=== PATIENT | male | born 1945 | race Caucasian/White ===

== ENCOUNTER → 2017-10-03 08:32 | Outpatient (CLI) | payer MEDICARE, OTHER, SELFPAY ==
[2017-10-03 10:19] LABS: Alanine Aminotransferase 24 U/L (12-78); Albumin Level 3.6 gm/dL (3.4-5.0); Albumin/Globulin Ratio 1.2 (1.1-1.8); Alkaline Phosphatase 82 U/L (46-116); Anion Gap 8.2 mEq/L (5-15); Aspartate Amino Transferase 13 U/L (15-37); Bilirubin,Total 0.5 mg/dL (0.2-1.0); Blood Urea Nitrogen 20 mg/dL (7-18); Calcium 8.7 mg/dL (8.5-10.1); Carbon Dioxide 32 mmol/L (21.0-32.0); Chloride 108 mmol/L (98-107); Chol/HDL Ratio 4.1 (1-3.5); Cholesterol 205 mg/dL (140-200); Creatinine,Serum 0.85 mg/dL (0.70-1.30); Estimated Glomerular Filt Rate 89 ml/min (>60); GFR (African American) 107 ML/MIN (>60); Glucose 108 mg/dL (74-106); HDL Cholesterol 50 mg/dL (27-67); LDL Cholesterol 139 mg/dL (0-130); Potassium 4.2 mmoL/L (3.5-5.1); Sodium 144 mmol/L (136-145); Total Protein,Serum 6.6 gm/dL (6.4-8.2); Triglycerides 81 mg/dL (30-200); VLDL Cholesterol 16 mg/dL (0-40)
== END ==
PROVIDERS: PCP Internal Medicine Adolescent Medicine; Visit Provider Internal Medicine Adolescent Medicine
DX: Z83.49 Family history of other endocrine, nutritional and metabolic diseases (principal); Z79.899 Other long term (current) drug therapy
CPT/HCPCS: 36415; 80053; 80061

== ENCOUNTER → 2018-10-10 10:32 | Outpatient (CLI) | payer MEDICARE, BC, SELFPAY ==
--- NOTE | 2018-10-10 10:55 | XR_ITS ---
XR ribs RT 2V HISTORY: ITS.REASON: MID BACK PAIN RT SIDE ORDERING PHYSICIAN: Cedric Farley MD PATIENT AGE: 72 years Comparison: None FINDINGS: Multiple views of the right ribs were obtained. No fracture or dislocation. No lytic or blastic change. IMPRESSION: Negative RIBS. If pain persists, consider follow-up exam in 7-[address] with 3-D reformats.
--- NOTE | 2018-10-10 10:55 | XR_ITS ---
XR chest 2V HISTORY: ITS.REASON: MID BACK PAIN RT SIDE ORDERING PHYSICIAN: Cedric Farley MD PATIENT AGE: 72 years COMPARISON: None FINDINGS: The cardiomediastinal silhouette and pulmonary vascularity are within normal limits. The lungs are clear without infiltrates, suspicious nodules, or pleural effusions. No acute bony abnormalities. IMPRESSION: Negative chest, no acute finding
== END ==
PROVIDERS: PCP Internal Medicine Adolescent Medicine; Visit Provider Internal Medicine Adolescent Medicine
DX: M54.9 Dorsalgia, unspecified (principal)
CPT/HCPCS: 71046; 71100

== ENCOUNTER → 2020-06-04 09:48 | Outpatient (CLI) | payer MEDICARE, BC, SELFPAY ==
--- NOTE | 2020-06-04 10:03 | XR_ITS ---
PROCEDURE: XR SHOULDER LT MIN 2V CLINICAL INDICATION: ROTATOR CUFF SYNDROME OF LEFT SHOULDER COMPARISON: No exams were available for comparison FINDINGS: The clavicle is intact, there is minor degenerate change of the AC joint. The humeral head rides slightly high in the glenoid usually an indication of some degree of rotator cuff pathology. However there is no significant subacromial stenosis. There are no soft tissue calcifications. IMPRESSION: No acute findings. Dictated by: Dr. Edwin Gamboa MD 06/04/2020 11:23 Dr. Edwin Gamboa MD in [place] 06/04/2020 11:23
--- NOTE | 2020-06-04 10:03 | XR_ITS ---
PROCEDURE: XR THORACIC SPINE 3V CLINICAL INDICATION: MECHANICAL LOW BACK PAIN COMPARISON: No exams were available for comparison FINDINGS: There is minor tilting of the upper thoracic spine to the left likely due to positioning for the radiograph. All thoracic vertebrae appear intact. There minor multilevel degenerate changes T8 through T12. There is no paraspinal mass. IMPRESSION: Minor degenerate changes lower thoracic spine Dictated by: Dr. Edwin Gamboa MD 06/04/2020 11:28 Dr. Edwin Gamboa MD in [place] 06/04/2020 11:28
--- NOTE | 2020-06-04 10:04 | XR_ITS ---
PROCEDURE: XR LUMBAR SPINE MIN 4V CLINICAL INDICATION: MECHANICAL LOW BACK PAIN COMPARISON: No exams were available for comparison FINDINGS: There is normal curvature and alignment. All lumbar vertebrae appear intact and disc spaces are well maintained throughout. There is no pars defect. The SI joints are normal. There is minimal arteriosclerotic calcification of the abdominal aorta but there is no aneurysm. There is minor anterior osteophytic spurring at the L2-3 and L3-4 levels. IMPRESSION: Minor degenerate changes as noted otherwise unremarkable lumbar spine Dictated by: Dr. Edwin Gamboa MD 06/04/2020 11:21 Dr. Edwin Gamboa MD in [place] 06/04/2020 11:21
== END ==
PROVIDERS: PCP Internal Medicine Adolescent Medicine; Visit Provider Internal Medicine Adolescent Medicine
DX: M54.5 Low back pain (principal); M75.102 Unspecified rotator cuff tear or rupture of left shoulder, not specified as traumatic
CPT/HCPCS: 72072; 72110; 73030

== ENCOUNTER → 2020-09-21 12:17 | Outpatient (CLI) | payer MEDICARE, BC, SELFPAY ==
[2020-09-21 14:22] LABS: Chloride 101 mmol/L (98-107)
[2020-09-21 14:23] LABS: Potassium 4.5 mmoL/L (3.5-5.1); Sodium 142 mmol/L (136-145)
[2020-09-21 14:25] LABS: Alanine Aminotransferase 16 U/L (12-78); Alkaline Phosphatase 80 U/L (38-126); Anion Gap 10.5 mEq/L (5-15); Aspartate Amino Transferase 22 U/L (17-59); Bilirubin,Total 0.5 mg/dl (0.2-1.3); Blood Urea Nitrogen 18 mg/dl (9-20); Carbon Dioxide 35 mmol/L (22.0-30.0); Estimated Glomerular Filt Rate 82 ml/min (>60); GFR (African American) 100 ML/MIN (>60)
[2020-09-21 14:26] LABS: Albumin Level 4.5 g/dl (3.5-5.0); Albumin/Globulin Ratio 1.6 (1.1-1.8); Chol/HDL Ratio 4.4 (1-3.5); Cholesterol 214 mg/dl (140-200); Globulin 2.9 g/dL (1.3-3.2); Glucose 112 mg/dl (74-100); HDL Cholesterol 49 mg/dl (40-60); Total Protein,Serum 7.4 g/dl (6.3-8.2); Triglycerides 151 mg/dl (30-150); VLDL Cholesterol 30 mg/dL (0-40)
[2020-09-21 14:38] LABS: Direct LDL Cholesterol 138.09 mg/dL (100-129)
== END ==
PROVIDERS: Visit Provider Internal Medicine Adolescent Medicine
DX: E78.00 Pure hypercholesterolemia, unspecified (principal)
CPT/HCPCS: 36415; 80053; 80061

== ENCOUNTER 2021-09-02 10:31 | Emergency (ER) | payer MEDICARE, BC, SELFPAY ==
[2021-09-02 10:32] VITALS: BMI 26.2
--- NOTE | 2021-09-02 11:13 | HMH.EDUTC ---
[facility] [place] Clinical Impression: UTI (urinary tract infection) Qualifiers: Urinary tract infection type: site unspecified Hematuria presence: with hematuria Qualified Code(s): N39.0 - Urinary tract infection, site not specified; R31.9 - Hematuria, unspecified Disposition: Home, Self-Care Condition on Discharge: Good Instructions: DI for Urinary Tract Infection (UTI) Additional Instructions: Drink plenty of fluids. Take tylenol or ibuprofen for pain or fever. Take the medications as directed. Follow up with your regular doctor. GO TO THE ER FOR ANY WORSENING SYMPTOMS Follow up with your primary care physician to make sure this infection gets completely better. Prescriptions: Ciprofloxacin HCl [Cipro 500mg Tab] 500 mg PO BID 14 Days #28 tab Transmission Status: Pending to [id number] Referrals: Cedric Farley MD [Primary Care Provider] - Time of Disposition: 12:07 Medical Decision Making - Medical Records Medical records reviewed: No: I reviewed the patient's medical records. - Jc Inquiry Pt receiving controlled substance: No Vital Signs: 09/02/21 11:21 Temperature 98 F Temperature Source Oral Pulse Rate [Left] 72 Respiratory Rate 18 Blood Pressure [Right Arm] 113/90 Blood Pressure Mean [Right Arm] 97 02 Sat by Pulse Oximetry 95 - Lab Data Lab results reviewed: Yes: I reviewed the patient's lab results. Lab Results 09/02/21 11:25: Urine Color Red, Urine Appearance Turbid, Urine pH 5.5, Ur Specific [place] > 1.030 H, Urine Protein 4+, Urine Glucose (UA) 2+, Urine Ketones Trace, Urine Blood 4+, Urine Nitrate Positive A, Urine Bilirubin 1+ A, Urine Urobilinogen 1, Ur Leukocyte Esterase Negative Orders (Tests/Meds): ED MEDICATIONS Discontinued Medications Generic Name Dose Route Start Last Admin Trade Name Freq PRN Reason Stop Dose Admin Ceftriaxone Sodium 1 gm 09/02/21 11:43 09/02/21 11:48 Ceftriaxone 1gm Vial IM 09/02/21 11:44 1 gm ONCE ONE Administration Lidocaine HCl 0 ml 09/02/21 11:43 09/02/21 11:48 Lidocaine 1% 5ml Pf Vial IM 09/02/21 11:44 2 ml ONCE ONE Administration ORDERS Category Date Time Status Urine Culture Stat Micro 09/02/21 11:25 Ordered [facility] [place] HPI - General Stated complaint: can't urinate Time Seen by Provider: 09/02/21 11:13 Mode of Arrival: Ambulatory Source of Information: Patient Limitations: No Limitations Description of Symptoms (Recalled from Triage Doc. by RN): pt c/o freq urination starting yesterday states going every 10-15 mins. denies any burning with urination, nausea, fever or chills - History of Present Illness Provider Complaint: He states that since yesterday he has had urinary frequency and burning with urination. He denies any fever or chills. He always has low back pain, so he cannot tell by this. - Related Data Home Medications Medication Instructions Recorded Confirmed Fexofenadine/Pseudoephedrine 1 each PO DAILY 02/25/18 02/25/18 [Charla-D 12 Hour Tablet] Previous Rx's Medication Instructions Recorded Ciprofloxacin HCl [Cipro 500mg 500 mg PO BID 14 Days #28 tab 09/02/21 Tab] Allergies Allergy/AdvReac Type Severity Reaction Status Date / Time No Known Allergies Allergy Verified 02/25/18 11:07 [facility] History - Hepatitis A Screen Attestation statement:: This patient has been screened for Hepatitis A risk factors. I have reviewed the patient's past medical history: Yes Medical History: Denies:: Diabetes Mellitus Type 1, Diabetes Mellitus Type 2, Internal Pacemaker, Lung Disease, Seizures Other Medical History: Reports: Sinus Problems Other Surgeries: No: Pacemaker Amputation: No Fractures: No - Social History Smoking Status: Current some day smoker Tobacco Type: pipe Alcohol Intake: never Substance Use Type: denies use Family Hx:: No significant family history ROS Obtained: Yes All systems reviewed & no additional compla
[2021-09-02 11:21] VITALS: BP 113/90; PULSE 72; RESP 18; TEMP 36.6; O2SAT 95; BMI 24.8
[2021-09-02 11:31] LABS: Apearance,Urine Turbid (Clear); Bilirubin,Urine 1+ (Negative); Blood, Urine 4+ (Negative); Color,Urine Red (Yellow); Glucose,Urine (UA) 2+ (Negative); Ketones,Urine TRACE (Negative); PH,Urine 5.5 (5.0-8.5); Protein,Urine 4+ (Negative); Specific Gravity, Urine > 1.030 (1.005-1.030)
[2021-09-02 11:32] LABS: UTC Leukocyte Esterase,Urine Negative (Negative); UTC Nitrate,Urine Positive (Negative); Urobilinogen,Urine 1 EU/dl (0.2)
[2021-09-02 12:11] VITALS: BP 113/90; PULSE 72; RESP 18; TEMP 36.6
== END 2021-09-02 12:13 | disposition home or self-care (01) ==
PROVIDERS: Emergency Provider Nurse Practitioner Family; PCP Internal Medicine Adolescent Medicine
DX: N30.01 Acute cystitis with hematuria (principal)
CPT/HCPCS: 81003; 87086; 90471; 99202; G0463; J0696

== ENCOUNTER 2021-10-22 17:35 | Emergency (ER) | payer MEDICARE, BC, SELFPAY ==
[2021-10-22 17:40] VITALS: BP 191/91; PULSE 74; RESP 18; TEMP 36.7; O2SAT 97; BMI 26.6
[2021-10-22 17:54] LABS: Apearance,Urine Clear (Clear); Color,Urine Yellow (Yellow); Glucose,Urine (UA) Negative (Negative)
[2021-10-22 17:55] LABS: Bilirubin,Urine Negative (Negative); Blood, Urine 3+ (Negative); Ketones,Urine Negative (Negative); Protein,Urine 3+ (Negative); UTC Leukocyte Esterase,Urine Negative (Negative); UTC Nitrate,Urine Negative (Negative); Urobilinogen,Urine 0.2 EU/dl (0.2)
--- NOTE | 2021-10-22 17:58 | HMH.EDUTC ---
[facility] [place] Clinical Impression: UTI (urinary tract infection) Qualifiers: Urinary tract infection type: site unspecified Hematuria presence: with hematuria Qualified Code(s): N39.0 - Urinary tract infection, site not specified Disposition: Home, Self-Care Condition on Discharge: Good Instructions: Trimethoprim/Sulfamethoxazole (Alternative Therapy), Urinary Tract Infection, DI for Urinary Tract Infection (UTI), Phenazopyridine Additional Instructions: *Increase fluids. Water not Soda or Tea *Start antibiotic immediately and be sure to take as ordered for the FULL length of time although you should start to see improvement over the next 48 hours *Pyridium as needed Remember this medication will turn your urine [place]. This is normal but it will stain what ever it gets on *You should not use Pyridium for more than 48 hours. If so , follow up with your primary physician to review urine culture and ensure that antibiotic is adequate for infection *Be SURE to follow up anytime for new or worsening symptoms with your family doctor. AND in 48 hours for urine culture results with your family doctor, if you do not have a doctor then you may call back to the [facility] for urine culture results and further treatment. We do recommend that you choose and establish care with a Primary Care Physician. AND follow up with them in 10-14 days to repeat UA to ensure infection is resolved and blood no longer present *Be sure to let your PCP know that we sent urine cultures from the [facility] so they can follow up to ensure that you area the on the correct antibiotic Call your doctor office and make appointment for 48 hours (2 days from today) to follow up and get the results of your urine culture and further treatment Go straight to ER if any fever, confusion or worsening of symptoms Follow up with your Family Doctor or Urology for further treatment and evaluation Return if needed Stop the AZO and take Pyridium as prescribed to help with burning with urination Prescriptions: Sulfamethoxazole/Trimethoprim [Bactrim DS tablet] 1 each PO BID 7 Days #14 tab Transmission Status: Received by [facility] #[id number] Phenazopyridine HCl [Pyridium 200mg Tablet] 200 pow PO TID #6 tab Transmission Status: Received by [facility] #[id number] Referrals: Cedric Farley MD [Primary Care Provider] - As needed Mike Aguilera MD [Staff Physician] - As needed Time of Disposition: 18:17 Medical Decision Making - Jc Inquiry Pt receiving controlled substance: No Jc was queried for this patient: No Vital Signs: 10/22/21 17:40 Temperature 98.0 F Temperature Source Oral Pulse Rate [Left Brachial] 74 Respiratory Rate 18 Blood Pressure [Left Arm] 191/91 H Blood Pressure Mean [Left Arm] 124 Blood Pressure Source [Left Arm] Automatic Cuff Blood Pressure Position [Left Arm] Sitting 02 Sat by Pulse Oximetry 97 Oxygen Delivery Method Room Air - Lab Data Lab results reviewed: Yes: I reviewed the patient's lab results. Lab Results 10/22/21 17:38: Urine Color Yellow, Urine Appearance Clear, Urine pH 6.0, Ur Specific [place] 1.030, Urine Protein 3+, Urine Glucose (UA) Negative, Urine Ketones Negative, Urine Blood 3+, Urine Nitrate Negative, Urine Bilirubin Negative, Urine Urobilinogen 0.2, Ur Leukocyte Esterase Negative Orders (Tests/Meds): ED MEDICATIONS Discontinued Medications Generic Name Dose Route Start Last Admin Trade Name Freq PRN Reason Stop Dose Admin Ceftriaxone Sodium 1 gm 10/22/21 18:11 Ceftriaxone 1gm Vial IM 10/22/21 18:12 ONCE ONE Lidocaine HCl 0 ml 10/22/21 18:11 Lidocaine 1% 5ml Pf Vial IM 10/22/21 18:12 ONCE ONE Medical Decision Narrative: Patient blood pressure was elevated on triage however rechecked and now 137/82 Patient states he is agitated due to using the bathroom so much, Recommended patient follow up with PCP for check up . Patient denies prostate issues and denies history of kidney s
[2021-10-22 18:30] VITALS: BP 128/74; PULSE 74; RESP 18; TEMP 36.7; O2SAT 97
== END 2021-10-22 18:34 | disposition home or self-care (01) ==
PROVIDERS: Emergency Provider Nurse Practitioner; PCP Internal Medicine Adolescent Medicine
DX: N30.00 Acute cystitis without hematuria (principal); F17.210 Nicotine dependence, cigarettes, uncomplicated
CPT/HCPCS: G0463; 81003; 96372; 99202; 99212; 99213; J0696

== ENCOUNTER → 2021-10-30 07:20 | Outpatient (CLI) | payer MEDICARE, SELFPAY ==
--- NOTE | 2021-10-30 07:25 | CT_ITS ---
FINAL REPORT CLINICAL HISTORY: RECURRENT UTI FINDINGS: Axial CT images of the abdomen and pelvis were obtained without intravenous contrast. Coronal reformatted images were also obtained.This study was performed with techniques to keep radiation doses as low as reasonably achievable (ALARA). Individualized dose reduction techniques using automated exposure control or adjustment of mA and/or kV according to the patient's size were employed. Abdomen: There is mild bibasilar atelectasis. There is no evidence of renal stone or hydronephrosis. There is a small gallstone in the gallbladder. The liver, spleen and pancreas have an unremarkable, unenhanced appearance. No mass or adenopathy is seen. There are moderate vascular calcifications. Pelvis: The appendix is normal. There is no evidence of ureteral dilation or ureteral stone. There is urinary bladder wall thickening which is likely inflammatory. There are numerous bladder stones measuring up to 10 mm. The prostate is significantly enlarged measuring 7 cm transverse. There is a small left inguinal hernia containing fat. IMPRESSION: No renal or ureteral stone, or hydronephrosis. Urinary bladder wall thickening, likely inflammatory. Numerous bladder stones measuring up to 10 mm. Significantly enlarged prostate. Reviewed, Interpreted and Dictated by Bakari Connolly III, MD Transcribed by Neyda Gauthier Authenticated by Bakari Connolly III, MD on 10/30/2021 10:18:05 AM [facility]
== END ==
PROVIDERS: PCP Internal Medicine Adolescent Medicine; Visit Provider Internal Medicine Adolescent Medicine
DX: N39.0 Urinary tract infection, site not specified (principal)
CPT/HCPCS: 74176

== ENCOUNTER → 2021-12-08 10:52 | Outpatient (CLI) | payer MEDICARE, SELFPAY ==
[2021-12-08 11:01] LABS: MANUAL DIFFERENTIAL MANUAL DIFFERENTIAL (MANUAL DIFF)
[2021-12-08 11:41] LABS: Anion Gap 9.9 mEq/L (5-15); Blood Urea Nitrogen 21 mg/dl (9-20); Calcium 8.6 mg/dl (8.4-10.2); Carbon Dioxide 29 mmol/L (22.0-30.0); Chloride 106 mmol/L (98-107); Estimated Glomerular Filt Rate 72 ml/min (>60); GFR (African American) 88 ML/MIN (>60); Glucose 128 mg/dl (74-100); Potassium 3.9 mmoL/L (3.5-5.1); Sodium 141 mmol/L (136-145)
[2021-12-08 14:27] LABS: Basophils % 0.3 % (0.1-2.0); Eosinophils # 0.2 K/mm3 (0.0-0.4); Eosinophils % 4.1 % (0.1-12.0); Hematocrit 45.6 % (42.0-52.0); Hemoglobin 14.2 g/dL (14.1-18.0); Lymphocytes # 1.2 K/mm3 (0.7-4.5); Mean Corpuscular HGB Conc 31.1 g/dL (31.8-35.4); Mean Corpuscular Volume 89.9 fl (80-94); Mean Platelet Volume 8.9 fl (7.4-10.4); Monocytes # 0.4 K/mm3 (0.1-1.0); Monocytes % 7.4 % (1.7-9.3); Neutrophils # 3.4 K/mm3 (1.8-7.8); Neutrophils % 65.2 % (37.0-80.0); Platelet Count 169 K/mm3 (142-424); Red Blood Count 5.07 M/mm3 (4.60-6.20); Red Cell Distribution Width 14.6 % (11.5-17.5); White Blood Count 5.3 K/mm3 (4.8-10.8)
[2021-12-08 14:53] LABS: Lymphocytes % 28 % (10-50); Monocytes % 3 % (2-9); Neutrophils % 69 % (42-76); Platelet Estimate Normal; RBC Morphology Normal; Total Cells Counted 100
== END ==
PROVIDERS: Visit Provider Urology
DX: N39.0 Urinary tract infection, site not specified (principal); N40.1 Benign prostatic hyperplasia with lower urinary tract symptoms; N21.0 Calculus in bladder; Z01.812 Encounter for preprocedural laboratory examination; Z11.52 Encounter for screening for COVID-19
CPT/HCPCS: 36415; 80048; 85007; 85014; 85018; 85048; 85049; C9803; U0003; U0005

== ENCOUNTER 2021-12-11 14:46 | Observation (INO) | payer MEDICARE, SELFPAY ==
[2021-12-07 10:22] VITALS: BMI 27.3
[2021-12-11] VITALS (26 sets, daily range): BP systolic 132–185; BP diastolic 60–94; PULSE 52–74; RESP 16–18; TEMP 36.2–43; O2SAT 92–98; BMI 27.3
--- NOTE | 2021-12-11 12:08 | HMH.ANESCL ---
[facility] Anesthesia Checklist - Patient Identification Patient Identification: Arm Band - Structural Data Admitted From: Home Planned Operative Procedure/s: Cystoscopy with Bladder Stone Removal Consent for Planned Operative Procedure(s) Verified: Yes Verified Documents: Surgical Consent, History and Physical - NPO Status Verified Time NPO: 00:00 - Additional verifications Anesthesia Reactions: No Hx Blood Transfusions: No Blood Transfusion Reaction: No - Airway Assessment C-Spine Mobility Assessed: Yes (mp2) TMJ Mobility Assessed: No Dentition: Poor Dentition - Neurological Assessment Level of Consciousness: Awake, Alert - Anesthesia Plan Anesthesia Risk discussed: Yes Anesthesia Plan: Verified ASA Class: II Anesthesia Type: General [facility] History I have reviewed the patient's past medical history: Yes Medical History: Reports:: Hypertension Denies:: Cancer, Diabetes Mellitus Type 1, Diabetes Mellitus Type 2, Internal Pacemaker, Lung Disease, MRSA, Seizures *Have you ever received a pneumonia vaccine?: Yes *Have you received a flu vaccine this season?: Yes Other Medical History: Reports: Sinus Problems. Denies: Blood Transfusion Reaction Anesthesia experience/problems:: nac Other Surgeries: Yes: Colonoscopy, Other. No: Pacemaker Amputation: No Fractures: No - *Social History Last grade of school completed: Some college Smoking Status: Current some day smoker Tobacco Type: pipe Alcohol Intake: never Substance Use Type: denies use *Occupational Status:: retired Housing: house Household Members: spouse *Travel in the last 8 weeks: None Family Hx:: No significant family history
--- NOTE | 2021-12-11 13:42 | P.PN_ITS ---
[facility] Anesthesia Record Part I Intake, IV Amount: 1,100 Estimated blood loss (mL): 0 Urine output (mL): 0 Blood Pressure: 167/91 SaO2: 94 Pulse Rate: 54 Respiratory Rate: 16 Temperature: 98 F Patient is:: Drowsy, Stable Stable to PACU at:: 13:40
--- NOTE | 2021-12-11 14:14 | P.PN_ITS ---
[facility] Anesthesia Record Part II Discharge Time: 14:00 Destination: Surgical Day Care (OP Surgery) PACU nurse assessment reviewed?: Yes Patient Condition:: Good Anesthesia Complications:: None Swallowing reflex intact?: Yes Cyanosis?: No Blood Pressure: 175/69 Pulse Rate: 60 Temperature: 97.9 F Mental Status: Alert & Oriented Pain level:: 0 Nausea and/or vomitting:: None Intake, IV Amount: 0
--- NOTE | 2021-12-11 14:30 | SUR.PHASEII ---
dr ferguson at bedside to irrigate catheter
--- NOTE | 2021-12-11 14:53 | HMH.PHAINT ---
MEDICATION RECONCILIATION COMPLETED ON PATIENT USING EXTERNAL FILL HISTORY FROM PHARMACY. -BRE FORREST, MYRNAD
--- NOTE | 2021-12-11 15:17 | SUR.PHASEII ---
waiting on orders from dr ferguson, report given to dale tubbs
--- NOTE | 2021-12-11 15:26 | HMH.OPNOTE ---
Date of procedure: 12/11/21 Pre-op Diagnosis:: Multiple bladder stones Post-op Diagnosis:: Bladder stones x7 Procedure performed:: Cystolitholopaxy with laser lithotripsy and removal of multiple bladder stones Surgeon:: Mike Aguilera MD PLASTIC ROLLER:: Junaid Khan Anesthesia: LMA Estimated blood loss (mL): 10 Clinical Note:: 76-year-old white male with some lower urinary tract symptoms and BPH has multiple bladder stones. He presents for urologic management of the bladder stones today. Operative findings:: Patient with a very high bladder neck but no significant prostatic hyperplasia. The bladder contains 7 bladder stones ranging from 9mm to 12 mm. Operative note:: Patient taken to the operating room after informed consent was obtained. Placed on the operating table in the supine position and general anesthesia administered. Preoperative antibiotics and sequential compression devices placed. He was then placed into the dorsal lithotomy position and prepped and draped in the standard surgical fashion. The 22 Prydeinig cystoscope passed into the urethra and up to the prostatic urethra which showed no significant hyperplasia but the bladder neck was quite high. The bladder was entered and there were noted to be 7 smooth round stones ranging from 9 mm to 12 mm in size. The cystoscope then removed and our 26 Prydeinig resectoscope sheath with obturator passed into the urethra but there was some narrowing. The urethra was dilated to 30 Prydeinig with Moses sounds and the 26 Prydeinig resectoscope sheath with obturator repassed and now passed into the bladder without difficulty. The 24 Prydeinig Loop was attached to the resectoscope and the resectoscope passed through the sheath and 6 of the stones were able to be grasped and removed with the loop. It was noted that there was some trauma with removing the stones and repassing the scope and some bleeding noted of the pendulous urethra and the prostatic urethra and bladder neck. The stone was larger and could not be grasped with the loop so the resectoscope was removed and our cystoscope was replaced and our 242 nm laser fiber passed through the scope and the stone broken up into several small fragments. Some of these were basketed out with a 3.0 basket and our cystoscope was then removed and we replaced the resectoscope and couple of other small fragments were removed. We then used the loop to cauterize some bleeding tissue at the bladder neck the prostatic urethra and pendulous urethra. Scope removed and a 20 Prydeinig catheter passed into 10 cc placed into the balloon. Patient transported to recovery room in stable condition. Condition: stable Disposition: PACU Specimens:: Bladder stones Complications:: None
--- NOTE | 2021-12-11 15:33 | HMH.HP ---
*Admission Date: 12/11/21 *Chief complaint: Penile pain and hematuria *History of present illness: 76-year-old white male with multiple bladder stones underwent cystolitholopaxy of the stones today in the operating room. Postoperatively he was having some penile discomfort as well as some oozing of blood from around his Wagner catheter and through the Wagner. Patient had 4 mg of morphine with some persistent discomfort and we discussed admitting him to the hospital for observation overnight. [facility] History Medical History: Reports:: Hypertension Denies:: Cancer, Diabetes Mellitus Type 1, Diabetes Mellitus Type 2, Internal Pacemaker, Lung Disease, MRSA, Seizures *Have you ever received a pneumonia vaccine?: Yes *Have you received a flu vaccine this season?: Yes Other Medical History: Reports: Sinus Problems. Denies: Blood Transfusion Reaction Anesthesia experience/problems:: nac Other Surgeries: Yes: No Previous Surgery, Colonoscopy, Other. No: Pacemaker Amputation: No Fractures: No - *Social History Last grade of school completed: Some college Smoking Status: Current some day smoker Tobacco Type: pipe Alcohol Intake: never Substance Use Type: denies use *Occupational Status:: retired Housing: house Household Members: spouse *Travel in the last 8 weeks: None Family Hx:: No significant family history Review of Systems - Review of Systems Review of systems:: pertinent systems reviewed and negative unless documented below Meds Home Medications Medication Instructions Recorded Confirmed Type Fexofenadine HCl [Charla Allergy] 60 mg PO DAILY 12/07/21 12/11/21 History Fluticasone Propionate [Flonase 1 spray NS DAILY 12/11/21 12/11/21 History 50mcg nasal spray 16gm] Tamsulosin HCl [Flomax 0.4mg 0.4 mg PO HS 12/11/21 12/11/21 History capsule] Allergies Allergy/AdvReac Type Severity Reaction Status Date / Time No Known Allergies Allergy Verified 12/11/21 09:43 Exam Vital signs and Labs for Last 24 Hours: Temp Pulse Resp BP Pulse Ox 97.9 F 59 L 18 163/82 H 97 12/11/21 14:14 12/11/21 15:01 12/11/21 15:01 12/11/21 15:01 12/11/21 15:01 I & O for Last 24 hours: Intake & Output 04/08/12/09/21 12/10/21 12/11/21 23:59 23:59 23:59 23:59 Intake Total 1100 / 1100 Balance 1100 / 1100 - Constitutional no acute distress - *Routine HEENT Exam Head: Present: normocephalic Eye: Present: EOMI, PERRL ENT: Present: mucous membranes moist - *Routine Neck Exam Present: supple. Absent: lymphadenopathy - *Routine Respiratory Exam Absent: accessory muscle use - *Routine Cardiovascular Exam Absent: JVD - *Routine Abdominal Exam Present: soft. Absent: tenderness - *Routine Rectal Exam Rectal:: deferred - *Routine Genitalia Exam Genitalia:: normal male - *Routine Extremities Exam Absent: cyanosis, clubbing, edema - *Routine Skin Exam Present: warm. Absent: rash - *Routine Neurological Exam Present: alert, oriented X3 Assessment and Plan (1) Bladder calculi Status: Acute Category: Medical Code(s): N21.0 - Calculus in bladder Patient underwent cystolitholopaxy today in the operating room. In recovery room he was having some mild persistent penile pain despite pain medication as well as some hematuria in his Wagner catheter. The plan was to discharge him home with his Wagner catheter but due to the pain and the blood in the urine I feel it would be prudent to keep him overnight for observation and pain control.
[2021-12-11 18:10] LABS: Coronavirus 19, PCR Not Detected (NotDetected); Influenza A, PCR Not Detected (NotDetected); Influenza B, PCR Not Detected (NotDetected)
[2021-12-12] VITALS: BP 134/47; PULSE 66; RESP 15; TEMP 37.1; O2SAT 92
[2021-12-12 04:00] VITALS: BP 141/69; PULSE 71; RESP 17; TEMP 36.9; O2SAT 96
[2021-12-12 05:00] VITALS: BMI 27.3
--- NOTE | 2021-12-12 06:26 | PC.NURSE ---
Pt has not voiced any complaints to staff t/o shift. Wagner catheter in place draining dark yellow urine. Bleeding noted at cath insertion site. Area has been cleaned and dressed 2x this shift. Call light within reach.
--- NOTE | 2021-12-12 07:14 | HMH.PHAVTE ---
[facility] Pharmacy VTE Monitoring - Patient Demographics Admission date: 12/12/21 Report Date: 12/12/21 Time: 07:14 Allergies/Adverse Reactions: Patient Allergies No Known Allergies Allergy (Verified 12/11/21 09:43) Height: 1.75 m Weight: 83.915 kg Patient Problems: Current Active Problems Bladder calculi (Acute) - VTE Risk Was VTE Risk Assessment Performed: Yes VTE Score: 1 Clinical Trial Participant: No - Prophylaxis VTE Prophylaxis Ordered?: Yes Types of VTE Prophylaxis: IPCS Knee High Location of Applied Device: Bilateral Lower Extremeties
[2021-12-12 08:00] VITALS: BP 136/64; PULSE 65; RESP 18; TEMP 36.9; O2SAT 95
--- NOTE | 2021-12-12 09:44 | HMH.ACPN2 ---
Internal Medicine - PN: Subj *Date: 12/12/21 *Time: 09:44 Interval history: Patient status post cystolithopaxy of several bladder stones yesterday. Postoperatively he had some penile pain as well as some hematuria and a Wagner catheter had been placed in the operating room after his procedure. Plan was to discharge home but he was having a lot of penile discomfort and hematuria so was kept overnight for observation. He feels much better this morning in the urine in the Wagner bag is clear. Exam Vital signs and Labs for Last 24 Hours: Temp Pulse Resp BP Pulse Ox 98.4 F 65 18 136/64 95 12/12/21 08:00 12/12/21 08:00 12/12/21 08:00 12/12/21 08:00 12/12/21 08:00 Laboratory Results - last 24 hr 12/11/21 18:03: SARS-CoV-2 (PCR) Not detected, Influenza A Untype (PCR) Not detected, Influenza Type B (PCR) Not detected I & O for Last 24 hours: Intake & Output 12/09/21 12/10/21 12/11/21 12/12/21 23:59 23:59 23:59 23:59 Intake Total 1734 / 1734 200 / 200 Output Total 300 / 850 550 / 550 Balance 1434 / 884 -350 / -350 Weight 83.943 kg 83.915 kg - Constitutional no acute distress - *Routine HEENT Exam Head: Present: normocephalic Eye: Present: EOMI, PERRL ENT: Present: mucous membranes moist - *Routine Neck Exam Present: supple. Absent: lymphadenopathy - *Routine Respiratory Exam Absent: accessory muscle use - *Routine Cardiovascular Exam Absent: JVD - *Routine Abdominal Exam Present: soft, normoactive bowel sounds. Absent: tenderness - *Routine Extremities Exam Absent: cyanosis, clubbing, edema - *Routine Skin Exam Present: warm. Absent: rash - *Routine Neurological Exam Present: alert, oriented X3 Assessment and Plan (1) Bladder calculi Status: Acute Category: Medical Code(s): N21.0 - Calculus in bladder Patient status post removal of several bladder stones yesterday with resultant penile discomfort and hematuria. Wagner catheter was placed in the operating room after the procedure due to the hematuria and the urine in his Wagner bag today is clear. Penile pain is much diminished. We will plan to remove his Wagner catheter and discharged home today. We did discuss that he would likely see a little bit of blood in his urine for 2 to 3 days. We will follow-up in 1 week.
--- NOTE | 2021-12-28 10:28 | HMH.DCSUM ---
General - General Admission date:: 12/11/21 Discharge date: 12/12/21 HPI HPI: 76-year-old white male with multiple bladder stones underwent cystolitholopaxy of the stones today in the operating room. Postoperatively he was having some penile discomfort as well as some oozing of blood from around his Wagner catheter and through the Wagner. Patient had 4 mg of morphine with some persistent discomfort and we discussed admitting him to the hospital for observation overnight. Hospital Course Hospital Course: Patient was admitted to the hospital. Cystolitholopaxy due to some penile pain and hematuria. Wagner catheter was kept in overnight and on the following morning penile pain was improved and hematuria had resolved. Wagner catheter was removed and he was able to void before discharge. Objective Vital signs: Temp Pulse Resp BP Pulse Ox 98.4 F 65 18 136/64 95 12/12/21 08:00 12/12/21 08:00 12/12/21 08:00 12/12/21 08:00 12/12/21 08:00 no acute distress - *Routine HEENT Exam Head: Present: normocephalic Eye: Present: EOMI, PERRL ENT: Present: mucous membranes moist - *Routine Neck Exam Present: supple - *Routine Respiratory Exam Absent: accessory muscle use - *Routine Cardiovascular Exam Absent: JVD - *Routine Abdominal Exam Present: soft. Absent: tenderness - *Routine Extremities Exam Absent: cyanosis, clubbing, edema - *Routine Skin Exam Present: warm. Absent: rash DS: Diagnosis - Discharge Diagnosis (1) Bladder calculi Status: Acute Discharge Plan - Patient Discharge Instructions ACTIVITY: Ambulate as tolerated DIET: regular diet Additional Instructions: push fluids Patient Instructions: DI for Cystoscopy - Follow up Plan Follow up with: Mike Aguilera MD [Staff Physician] - 12/19/21 11:15 am Disposition: Home, Self-Care Condition at discharge:: Stable Home Medications: Home Medications Medication Instructions Recorded Confirmed Type No Known Home Medications 12/27/21 12/27/21 History Prescriptions/Medication Reconciliation: No Action No Known Home Medications - Problem Reconciliation Problems Reviewed?: Yes
[2022-01-01 23:33] LABS: Specimen Type NOT PROVIDED
== END 2021-12-12 10:26 | disposition home or self-care (01) ==
LOC: 2ND 14:46
PROVIDERS: Admitting Provider Urology; PCP Internal Medicine Adolescent Medicine; Visit Provider Urology
PROC: 0TJB8ZZ Inspection of Bladder, Via Natural or Artificial Opening Endoscopic (ICD-10-PCS; CPT 52000; principal; 2021-12-11 11:15)
DX: N21.0 Calculus in bladder (principal); I10 Essential (primary) hypertension; Z20.822 Contact with and (suspected) exposure to COVID-19; F17.210 Nicotine dependence, cigarettes, uncomplicated; Z79.899 Other long term (current) drug therapy; N40.1 Benign prostatic hyperplasia with lower urinary tract symptoms; R33.8 Other retention of urine
CPT/HCPCS: 52318; G0378; 82370; 96374; C9803; J2405; U0003; U0005

== ENCOUNTER 2021-12-12 18:06 | Emergency (ER) | payer MEDICARE, SELFPAY ==
[2021-12-12 18:19] VITALS: BP 215/92; PULSE 91; RESP 18; TEMP 36.6; O2SAT 98; BMI 27.3
--- NOTE | 2021-12-12 18:30 | HMH.EDGENADL ---
ED Disposition Clinical Impression: Urinary retention Disposition: Home, Self-Care Condition on Discharge: Good Instructions: DI for Urinary Tract Infection (UTI), DI for Urinary Tract Infection in Children Prescriptions: Cefdinir [Omnicef 300mg Capsule] 300 mg PO BID #20 cap Transmission Status: Pending to [facility] #[id number] Referrals: Cedric Farley MD [Primary Care Provider] - Mike Aguilera MD [Staff Physician] - - Critical Care Critical Care Time: No Attestation: On 12/12/21, the high probability of a clinically significant, sudden or life threatening deterioration of the following system(s) required my full and direct attention, intervention and personal management. The time I documented below is in addition to time spent performing reported procedures but includes the following listed in this critical care notation. Medical Decision Making - Medical Records Medical records reviewed: Yes: I reviewed the patient's medical records. - Jc Inquiry Pt receiving controlled substance: No Vital Signs: 12/12/21 18:19 Temperature 97.9 F Temperature Source Oral Pulse Rate [Right Brachial] 91 H Respiratory Rate 18 Blood Pressure [Right Arm] 215/92 H Blood Pressure Mean [Right Arm] 133 Blood Pressure Source [Right Arm] Automatic Cuff Blood Pressure Position [Right Arm] Sitting 02 Sat by Pulse Oximetry 98 Oxygen Delivery Method Room Air Orders (Tests/Meds): ED MEDICATIONS Discontinued Medications Generic Name Dose Route Start Last Admin Trade Name Freq PRN Reason Stop Dose Admin Hydrocodone Bitart/Acetaminophen 1 tab 12/12/21 18:29 12/12/21 18:33 Apap/Hydrocodone 325mg/7.5mg Tab PO 12/12/21 18:30 1 tab ONCE ONE Administration ORDERS Category Date Time Status Urinalysis-Acute [Urinalysis and Microscopic] Stat Lab 12/12/21 18:45 Received Medical Decision Narrative: reeval, symptoms resolved with [place]jada and uop in bag, agreed to plan to f/u urology and return for worse General Adult HPI - General Stated complaint: bladder procedure 411, pain low abd Time Seen by Provider: 12/12/21 18:30 - History of Present Illness HPI narrative: cystoscopy with stones yesterday here and d/c today, penis pain, urinary urgency, low abd pressure now Onset (ago): hour(s) Radiation: non-radiation Severity: moderate Quality: burning, dull Consistency: constant, intermittent Relieving factors: none Exacerbating factors: none Associated symptoms: denies other symptoms - Related Data Home Medications Medication Instructions Recorded Confirmed Fexofenadine HCl [Charla Allergy] 60 mg PO DAILY 12/07/21 12/11/21 Fluticasone Propionate [Flonase 1 spray NS DAILY 12/11/21 12/11/21 50mcg nasal spray 16gm] Tamsulosin HCl [Flomax 0.4mg 0.4 mg PO HS 12/11/21 12/11/21 capsule] Previous Rx's Medication Instructions Recorded Cefdinir [Omnicef 300mg Capsule] 300 mg PO BID #20 cap 12/12/21 Allergies Allergy/AdvReac Type Severity Reaction Status Date / Time No Known Allergies Allergy Verified 12/11/21 09:43 [facility] History - Hepatitis A Screen Attestation statement:: This patient has been screened for Hepatitis A risk factors. Medical History: Reports:: Hypertension Denies:: Cancer, Diabetes Mellitus Type 1, Diabetes Mellitus Type 2, Internal Pacemaker, Lung Disease, MRSA, Seizures Other Medical History: Reports: Sinus Problems. Denies: Blood Transfusion Reaction Other Surgeries: Yes: No Previous Surgery, Colonoscopy, Other. No: Pacemaker Amputation: No Fractures: No - Social History Smoking Status: Light tobacco smoker Tobacco Type: pipe # Packs/Day (cigarettes): 0 Alcohol Intake: never Substance Use Type: denies use Occupational Status: retired Housing: house Household Members: spouse Family Hx:: No significant family history ROS Obtained: Yes All systems reviewed & no additional complaints Physical Exam - General General a
[2021-12-12 18:51] LABS: Microscopic, Urine URINE MICROSCOPIC (MICROSCOPIC)
--- NOTE | 2021-12-12 18:52 | PC.NURSE ---
after insertion of Wagner pt had instant relief with 800cc out immediately
[2021-12-12 18:59] LABS: Appearance,Urine CLEAR (Clear); Bilirubin,Urine Negative (Negative); Blood, Urine 3+ (Negative); Color,Urine YELLOW (Yellow); Glucose,Urine (UA) TRACE (Negative); Ketones,Urine Negative (Negative); Leukocyte Esterase,Urine Negative (Negative); Nitrate,Urine POSITIVE (Negative); PH,Urine 5.5 (5.0-8.5); Protein,Urine 1+ (Negative); Specific Gravity, Urine 1.025 (1.005-1.030)
[2021-12-12 19:01] VITALS: BP 144/59; PULSE 76; RESP 18; O2SAT 99
[2021-12-12 19:23] LABS: RBC,Urine 50-100 #/hpf (0-3); WBC,Urine Occasional #/hpf (0-3)
[2021-12-12 19:24] LABS: Bacteria,Urine Trace /lpf
[2021-12-12 19:33] VITALS: BP 134/75; PULSE 72; RESP 18; TEMP 36.6; O2SAT 99
== END 2021-12-12 19:39 | disposition home or self-care (01) ==
PROVIDERS: Emergency Medicine; Emergency Provider Nurse Practitioner Family; PCP Internal Medicine Adolescent Medicine
DX: R33.0 Drug induced retention of urine (principal); N21.0 Calculus in bladder; I10 Essential (primary) hypertension
CPT/HCPCS: 51702; 81001; 99283

== ENCOUNTER 2021-12-27 13:59 | Observation (INO) | payer MEDICARE, SELFPAY ==
[2021-12-27 14:01] VITALS: BP 195/115; PULSE 107; RESP 18; TEMP 36.7; O2SAT 97; BMI 27.3
--- NOTE | 2021-12-27 14:23 | HMH.EDGENADL ---
ED Disposition Clinical Impression: Bladder calculi, Gross hematuria Disposition: Admitted as Observation Condition on Discharge: Fair Referrals: Provider,Referral, [Primary Care Provider] - - Critical Care Critical Care Time: No Attestation: On 12/27/21, the high probability of a clinically significant, sudden or life threatening deterioration of the following system(s) required my full and direct attention, intervention and personal management. The time I documented below is in addition to time spent performing reported procedures but includes the following listed in this critical care notation. Medical Decision Making - Medical Records Medical records reviewed: Yes: I reviewed the patient's medical records. MR Comment: Patient had cystoscopy on 12/11/2021 for removal of bladder stones. Postoperatively he had penile pain and hematuria and was kept a day in the hospital. He then returned to the emergency room on 12/12/2021 due to urinary retention. He had a Wagner catheter placed. He followed up with Dr. Aguilera in the office on 12/19/2021 catheter removed and had a successful voiding trial. Notes reviewed from all of these visits. Reviewed CT abdomen pelvis result from 10/30/2021 that showed bladder stones, but no kidney or ureteral stones. - Jc Inquiry Pt receiving controlled substance: No Vital Signs: 12/27/21 14:01 Temperature 98.1 F Temperature Source Oral Pulse Rate [Left Radial] 107 H Respiratory Rate 18 Blood Pressure [Left Arm] 195/115 H Blood Pressure Mean [Left Arm] 141 Blood Pressure Source [Left Arm] Automatic Cuff Blood Pressure Position [Left Arm] Standing 02 Sat by Pulse Oximetry 97 Oxygen Delivery Method Room Air - Lab Data Lab Results 12/27/21 14:45: Urine Color Red, Urine Appearance Cloudy, Urine pH 6.5, Ur Specific [place] 1.025, Urine Protein 3+, Urine Glucose (UA) 1+, Urine Ketones Negative, Urine Blood 3+, Urine Nitrate Positive, Urine Bilirubin 1+ A, Urine Urobilinogen 1.0, Ur Leukocyte Esterase Negative, Urine RBC Tntc, Urine WBC 5-10, Ur Squamous Epith Cells None, Urine Bacteria 2+, Urine Yeast Occasional 12/27/21 15:37: WBC 10.3, RBC 4.77, Hgb 13.7 L, Hct 42.5, MCV 89.1, MCH 28.6, MCHC 32.1, RDW 13.7, Plt Count 217, MPV 8.7, Neut % (Auto) 46.8, Lymph % (Auto) 14.0, [place] % (Auto) 35.1 H, Eos % (Auto) 3.9, Baso % (Auto) 0.3, Neut # (Auto) 4.8, Lymph # (Auto) 1.5, [place] # (Auto) 3.6 H, Eos # (Auto) 0.4, Baso # (Auto) 0.0 12/27/21 15:37: Sodium 140, Potassium 4.3, Chloride 108 H, Carbon Dioxide 26, Anion Gap 10.3, BUN 27 H, Creatinine 0.90, Estimated Creat Clear 73, Estimated GFR 82, Est GFR ( Amer) 99, Glucose 162 H, Calcium 9.3 Result diagrams: 12/27/21 15:37 12/27/21 15:37 Orders (Tests/Meds): ED MEDICATIONS Generic Name Dose Route Start Last Admin Trade Name Freq PRN Reason Stop Dose Admin Ceftriaxone Sodium 1 gm/ 50 mls @ 100 mls/hr 12/27/21 15:45 12/27/21 16:10 Sodium Chloride IV 01/10/22 15:44 100 mls/hr Q24H RALF Administration Discontinued Medications Generic Name Dose Route Start Last Admin Trade Name Freq PRN Reason Stop Dose Admin Hydromorphone HCl 1 mg 12/27/21 18:17 12/27/21 18:18 Hydromorphone 2mg/Ml Syringe IV 12/27/21 18:18 1 mg ONCE ONE Administration Morphine Sulfate 4 mg 12/27/21 18:00 12/27/21 18:16 Morphine 4mg/Ml Syringe IV 12/27/21 18:01 4 mg ONCE ONE Administration Ondansetron HCl 4 mg 12/27/21 18:00 12/27/21 18:16 Ondansetron 4mg/2ml Vial IV 12/27/21 18:01 4 mg ONCE ONE Administration ORDERS Category Date Time Status Complete Blood Count Auto Diff Stat Lab 12/27/21 15:37 Results Urine Culture Stat Micro 12/27/21 14:45 Received - Physician Consults Physician Consulted: Willy Time: 15:35 Reason -: Urology Eval/Care Comment/Response: Discussed clinical findings. States imaging not necessary. Insert three-way Wagner catheter for continuous bladder irrigation in the emergency
[2021-12-27 14:49] LABS: Microscopic, Urine URINE MICROSCOPIC (MICROSCOPIC)
[2021-12-27 15:14] LABS: Appearance,Urine CLOUDY (Clear); Blood, Urine 3+ (Negative); Color,Urine RED (Yellow); Glucose,Urine (UA) 1+ (Negative); Ketones,Urine Negative (Negative); Leukocyte Esterase,Urine Negative (Negative); Nitrate,Urine POSITIVE (Negative); PH,Urine 6.5 (5.0-8.5); Protein,Urine 3+ (Negative); Specific Gravity, Urine 1.025 (1.005-1.030)
--- NOTE | 2021-12-27 15:19 | PC.NURSE ---
Dr Aguilera called message left
[2021-12-27 15:22] LABS: Bilirubin,Urine 1+ (Negative)
[2021-12-27 15:24] LABS: Bacteria,Urine 2+ /lpf; RBC,Urine TNTC #/hpf (0-3)
[2021-12-27 15:25] LABS: Yeast,Urine Occasional /lpf
--- NOTE | 2021-12-27 15:28 | PC.NURSE ---
Paged Dr Aguilera
[2021-12-27 15:53] LABS: Chloride 108 mmol/L (98-107); Potassium 4.3 mmoL/L (3.5-5.1); Sodium 140 mmol/L (136-145)
[2021-12-27 15:57] LABS: Anion Gap 10.3 mEq/L (5-15); Blood Urea Nitrogen 27 mg/dl (9-20); Calcium 9.3 mg/dl (8.4-10.2); Carbon Dioxide 26 mmol/L (22.0-30.0); Creatinine Clearance Estimated 73 mL/min (50-200); Estimated Glomerular Filt Rate 82 ml/min (>60); GFR (African American) 99 ML/MIN (>60); Glucose 162 mg/dl (74-100)
[2021-12-27 15:59] LABS: Basophils % 0.3 % (0.1-2.0); Eosinophils # 0.4 K/mm3 (0.0-0.4); Eosinophils % 3.9 % (0.1-12.0); Hematocrit 42.5 % (42.0-52.0); Hemoglobin 13.7 g/dL (14.1-18.0); Lymphocytes # 1.5 K/mm3 (0.7-4.5); Mean Corpuscular HGB Conc 32.1 g/dL (31.8-35.4); Mean Corpuscular Hemoglobin 28.6 pg (27.0-31.2); Mean Corpuscular Volume 89.1 fl (80-94); Mean Platelet Volume 8.7 fl (7.4-10.4); Monocytes # 3.6 K/mm3 (0.1-1.0); Monocytes % 35.1 % (1.7-9.3); Neutrophils # 4.8 K/mm3 (1.8-7.8); Neutrophils % 46.8 % (37.0-80.0); Platelet Count 217 K/mm3 (142-424); Red Blood Count 4.77 M/mm3 (4.60-6.20); Red Cell Distribution Width 13.7 % (11.5-17.5); White Blood Count 10.3 K/mm3 (4.8-10.8)
[2021-12-27 16:01] LABS: MANUAL DIFFERENTIAL MANUAL DIFFERENTIAL (MANUAL DIFF)
--- NOTE | 2021-12-27 16:39 | PC.NURSE ---
Updated pt on POC. PT requested pain medicine, notified MD. no other needs at this time
--- NOTE | 2021-12-27 17:33 | PC.NURSE ---
Called house for irrigation bags
[2021-12-27 20:32] VITALS: BMI 27.3
[2021-12-27 20:49] VITALS: BP 144/75; PULSE 90; RESP 18; TEMP 36.7; O2SAT 98
[2021-12-27 20:56] LABS: Lymphocytes % 4 % (10-50); Monocytes % 11 % (2-9); Neutrophils % 84 % (42-76); Platelet Estimate Normal; Total Cells Counted 100
[2021-12-27 21:01] LABS: Coronavirus 19, PCR Not Detected (NotDetected); Influenza A, PCR Not Detected (NotDetected)
[2021-12-27 21:02] LABS: Influenza B, PCR Not Detected (NotDetected)
--- NOTE | 2021-12-27 21:45 | PC.NURSE ---
PT ARRIVED TO FLOOR VIA STRETCHER FROM ED W/STAFF @ [id number]
[2021-12-27 22:01] VITALS: BP 183/95; PULSE 84; RESP 17; TEMP 36.7; O2SAT 96
[2021-12-28 04:00] VITALS: BP 155/76; PULSE 74; RESP 16; TEMP 37.1; O2SAT 94
[2021-12-28 05:59] VITALS: BMI 27.3
--- NOTE | 2021-12-28 07:31 | P.CONPHA_ITS ---
[facility] Pharmacy VTE Monitoring - Patient Demographics Admission date: 12/28/21 Report Date: 12/28/21 Time: 07:32 Allergies/Adverse Reactions: Patient Allergies No Known Allergies Allergy (Verified 12/19/21 11:14) Height: 1.75 m Weight: 83.915 kg Patient Problems: Current Active Problems Bladder calculi (Acute) Gross hematuria (Acute) - VTE Risk Labs: VTE Related Lab Results Hgb 13.7 g/dL (14.1-18.0) L 12/27/21 15:37 Hct 42.5 % (42.0-52.0) 12/27/21 15:37 Plt Count 217 K/mm3 (142-424) 12/27/21 15:37 BUN 27 mg/dl (9-20) H 12/27/21 15:37 Creatinine 0.90 mg/dl (0.66-1.25) 12/27/21 15:37 Estimated Creat Clear 73 mL/min (50-200) 12/27/21 15:37 Was VTE Risk Assessment Performed: Yes VTE Score: 1 Clinical Trial Participant: No - Prophylaxis VTE Prophylaxis Ordered?: Yes Types of VTE Prophylaxis: TEDS Knee High
--- NOTE | 2021-12-28 07:50 | HMH.HP ---
*Admission Date: 12/28/21 *Chief complaint: hematuria, abdominal pain *History of present illness: Mr. Sanabria is a 76-year-old gentleman with history of bladder stones, status post procedure last week with urology to remove stones. Has had recurrent issues with hematuria over the past week. Had a catheter for few days last week due to obstruction. Catheter was removed on and he was doing well until having sensation of pain and what felt like passing a stone yesterday. Pain continued to get worse and he had gross hematuria leading to him coming to the ER. Wagner catheter was placed in the ER due to obstruction with large amount of blood released from the bladder. Was admitted for pain control and urology consult. Patient is remained afebrile overnight, hemodynamically stable. Stable on room air. Wagner draining pink urine. Pain responded well to Toradol. Patient pleasant and in no acute distress on exam this morning. [facility] History I have reviewed the patient's past medical history: Yes Medical History: Reports:: Hypertension Denies:: Cancer, Diabetes Mellitus Type 1, Diabetes Mellitus Type 2, Internal Pacemaker, Lung Disease, MRSA, Seizures *Have you ever received a pneumonia vaccine?: No *Have you received a flu vaccine this season?: No Other Medical History: Reports: Sinus Problems. Denies: Blood Transfusion Reaction Other Surgeries: Yes: No Previous Surgery, Colonoscopy, Other. No: Pacemaker Amputation: No Fractures: No - *Social History Smoking Status: Light tobacco smoker Tobacco Type: pipe # Packs/Day (cigarettes): 0 Alcohol Intake: never Alcohol Intake Frequency:: 0-2 drinks per day Substance Use Type: denies use *Occupational Status:: retired Housing: house Household Members: spouse *Travel in the last 8 weeks: None Family Hx:: No significant family history Review of Systems - Review of Systems Review of systems:: pertinent systems reviewed and negative unless documented below (14 point review of systems performed, pertinent positives and negatives as per HPI) Meds Home Medications Medication Instructions Recorded Confirmed Type No Known Home Medications 12/27/21 12/27/21 History Allergies Allergy/AdvReac Type Severity Reaction Status Date / Time No Known Allergies Allergy Verified 12/19/21 11:14 Exam Vital signs and Labs for Last 24 Hours: Temp Pulse Resp BP Pulse Ox 98.7 F 74 16 155/76 H 94 L 12/28/21 04:00 12/28/21 04:00 12/28/21 04:00 12/28/21 04:00 12/28/21 04:00 Laboratory Results - last 24 hr 12/27/21 14:45: Urine Color Red, Urine Appearance Cloudy, Urine pH 6.5, Ur Specific [place] 1.025, Urine Protein 3+, Urine Glucose (UA) 1+, Urine Ketones Negative, Urine Blood 3+, Urine Nitrate Positive, Urine Bilirubin 1+ A, Urine Urobilinogen 1.0, Ur Leukocyte Esterase Negative, Urine RBC Tntc, Urine WBC 5-10, Ur Squamous Epith Cells None, Urine Bacteria 2+, Urine Yeast Occasional 12/27/21 15:37: WBC 10.3, RBC 4.77, Hgb 13.7 L, Hct 42.5, MCV 89.1, MCH 28.6, MCHC 32.1, RDW 13.7, Plt Count 217, MPV 8.7, Neut % (Auto) 46.8, Lymph % (Auto) 14.0, [place] % (Auto) 35.1 H, Eos % (Auto) 3.9, Baso % (Auto) 0.3, Neut # (Auto) 4.8, Lymph # (Auto) 1.5, [place] # (Auto) 3.6 H, Eos # (Auto) 0.4, Baso # (Auto) 0.0, Total Counted 100, Neutrophils % (Manual) 84 H, Lymphocytes % (Manual) 4 L, Monocytes % (Manual) 11 H, Basophils % (Manual) 1.0, Platelet Estimate Normal 12/27/21 15:37: Sodium 140, Potassium 4.3, Chloride 108 H, Carbon Dioxide 26, Anion Gap 10.3, BUN 27 H, Creatinine 0.90, Estimated Creat Clear 73, Estimated GFR 82, Est GFR ( Amer) 99, Glucose 162 H, Calcium 9.3 12/27/21 20:50: SARS-CoV-2 (PCR) Not detected, Influenza A Untype (PCR) Not detected, Influenza Type B (PCR) Not detected I & O for Last 24 hours: Intake & Output 12/25/21 12/26/21 12/27/21 12/28/21 23:59 23:59 23:59 23:59 Output Total 400 / 400 Balance -400 / -400 Weight 83.915 kg 83.915 kg - Sourav
[2021-12-28 08:00] VITALS: BP 139/72; PULSE 72; RESP 15; TEMP 37.1; O2SAT 96
--- NOTE | 2021-12-28 10:16 | HMH.CONS ---
*Admission Date: 12/28/21 *Reason for consult:: Gross hematuria and difficulty voiding. *History of present illness: Patient is a 76-year-old white male well-known to me. He is status post recent cystoscopy and removal of multiple bladder stones. He had some penile pain and hematuria after that procedure and was kept overnight and discharged the next day without his Wagner catheter however he then had some urinary retention and had to return to the emergency room where a Wagner catheter was placed. Voiding trial was performed last week and he was able to void without difficulty. He states he did well for a week and then began having some more difficulty voiding yesterday with associated hematuria. He presented to the emergency room where a Wagner catheter was placed. Postvoid residual is available. Three-way catheter was placed in his bladder upon consultation with myself and the urine cleared to real watermelon colored by report. Patient was admitted to the medicine service for observation. Continuous bladder irrigation was not Draining upon admittance. This morning his urine is pink in the Wagner bag. Patient does have some penile discomfort his main complaint. There was evidence of urinary tract infection on his urinalysis in the emergency room and is on antibiotics. 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 [facility] History Medical History: Reports:: Hypertension Denies:: Cancer, Diabetes Mellitus Type 1, Diabetes Mellitus Type 2, Internal Pacemaker, Lung Disease, MRSA, Seizures *Have you ever received a pneumonia vaccine?: No *Have you received a flu vaccine this season?: No Other Medical History: Reports: Sinus Problems. Denies: Blood Transfusion Reaction Other Surgeries: Yes: No Previous Surgery, Colonoscopy, Other. No: Pacemaker Amputation: No Fractures: No - *Social History Smoking Status: Light tobacco smoker Tobacco Type: pipe # Packs/Day (cigarettes): 0 Alcohol Intake: never Alcohol Intake Frequency:: 0-2 drinks per day Substance Use Type: denies use *Occupational Status:: retired Housing: house Household Members: spouse *Travel in the last 8 weeks: None Family Hx:: No significant family history Review of Systems - Review of Systems Review of systems:: pertinent systems reviewed and negative unless documented below - Constitutional Denies anorexia - ENT Reports abnormal hearing - *Cardiovascular Denies chest pain - *Respiratory Denies shortness of breath - *Gastrointestinal Reports cramping - *Genitourinary Reports difficulty urinating - *Musculoskeletal Denies abnormal walking - *Neurologic Denies behavioral changes Meds Home Medications Medication Instructions Recorded Confirmed Type No Known Home Medications 12/27/21 12/27/21 History Allergies Allergy/AdvReac Type Severity Reaction Status Date / Time No Known Allergies Allergy Verified 12/19/21 11:14 Exam Vital signs and Labs for Last 24 Hours: Temp Pulse Resp BP Pulse Ox 98.7 F 72 15 139/72 96 12/28/21 08:00 12/28/21 08:00 12/28/21 08:00 12/28/21 08:00 12/28/21 08:00 Laboratory Results - last 24 hr 12/27/21 14:45: Urine Color Red, Urine Appearance Cloudy, Urine pH 6.5, Ur Specific [place] 1.025, Urine Protein 3+, Urine Glucose (UA) 1+, Urine Ketones Negative, Urine Blood 3+, Urine Nitrate Positive, Urine Bilirubin 1+ A, Urine Urobilinogen 1.0, Ur Leukocyte Esterase Negative, Urine RBC Tntc, Urine WBC 5-10, Ur Squamous Epith Cells None, Urine Bacteria 2+, Urine Yeast Occasional 12/27/21 15:37: WBC 10.3, RBC 4.77, Hgb 13.7 L, Hct 42.5, MCV 89.1, MCH 28.6, MCHC 32.1, RDW 13.7, Plt Count 217, MPV 8.7, Neut % (Auto) 46.8, Lymph % (Auto) 14.0, [place] % (Auto) 35.1 H, Eos % (Auto) 3.9, Baso % (Auto) 0.3, Neut # (Auto) 4.8, Lymph # (Auto) 1.5, [place] # (Auto) 3.6 H, Eos # (Auto) 0.4, Baso # (Auto) 0.0, Total Counted 100, Neutrophils % (Manual) 84 H, Lymphocyte
--- NOTE | 2021-12-28 14:02 | HMH.DCSUM ---
General - General Admission date:: 12/27/21 Discharge date: 12/28/21 HPI HPI: Mr. Steiner is a 76-year-old gentleman with history of bladder stones, status post procedure last week with urology to remove stones. Has had recurrent issues with hematuria over the past week. Had a catheter for few days last week due to obstruction. Catheter was removed on and he was doing well until having sensation of pain and what felt like passing a stone yesterday. Pain continued to get worse and he had gross hematuria leading to him coming to the ER. Wagner catheter was placed in the ER due to obstruction with large amount of blood released from the bladder. Was admitted for pain control and urology consult. Patient is remained afebrile overnight, hemodynamically stable. Stable on room air. Wagner draining pink urine. Pain responded well to Toradol. Patient pleasant and in no acute distress on exam this morning. Hospital Course Hospital Course: Admitted for hematuria and urinary obstruction. Catheter placed with improvement in urinary flow. Urology was consulted, recommendations as follows: Upon placing a Wagner catheter a large amount of blood and continuous bladder irrigation was instituted while in the ER. He was admitted to the floor and continuous bladder irrigation was not continued. This morning his urine is pink. His main complaint is penile discomfort. Discussed with the patient plans to go home with the Wagner catheter and return to see me next week for voiding trial and discussion of possible transurethral incision of prostate to help him flow better. Plan to complete empiric course for UTI, leave Wagner in place, and Toradol for pain. Close follow-up with urology in the outpatient setting. Medically stable for discharge home. Objective Vital signs: Temp Pulse Resp BP Pulse Ox 98.7 F 72 15 139/72 96 12/28/21 08:00 12/28/21 08:00 12/28/21 08:00 12/28/21 08:00 12/28/21 08:00 Narrative: - Constitutional no acute distress - *Routine HEENT Exam Head: Present: normocephalic Eye: Present: EOMI, PERRL ENT: Present: mucous membranes moist - *Routine Neck Exam Present: supple. Absent: lymphadenopathy - *Routine Respiratory Exam Present: CTA bilaterally - *Routine Cardiovascular Exam Present: RRR - *Routine Abdominal Exam Present: soft, normoactive bowel sounds, tenderness (Lower abdominal tenderness);No CVA tenderness - *Routine Extremities Exam Absent: cyanosis, clubbing, edema - *Routine Skin Exam Present: warm. Absent: rash - *Routine Neurological Exam Present: alert, oriented X3 Results Labs on day of discharge: Labs from last 24 hours 12/27/21 12/27/21 12/27/21 20:50 15:37 15:37 WBC 10.3 RBC 4.77 Hgb 13.7 L Hct 42.5 MCV 89.1 MCH 28.6 MCHC 32.1 RDW 13.7 Plt Count 217 MPV 8.7 Neut % (Auto) 46.8 Lymph % (Auto) 14.0 [place] % (Auto) 35.1 H Eos % (Auto) 3.9 Baso % (Auto) 0.3 Neut # (Auto) 4.8 Lymph # (Auto) 1.5 [place] # (Auto) 3.6 H Eos # (Auto) 0.4 Baso # (Auto) 0.0 Total Counted 100 Neutrophils % (Manual) 84 H Lymphocytes % (Manual) 4 L Monocytes % (Manual) 11 H Basophils % (Manual) 1.0 Platelet Estimate Normal Sodium 140 Potassium 4.3 Chloride 108 H Carbon Dioxide 26 Anion Gap 10.3 BUN 27 H Creatinine 0.90 Estimated Creat Clear 73 Estimated GFR 82 Est GFR ( Amer) 99 Glucose 162 H Calcium 9.3 Urine Color Urine Appearance Urine pH Ur Specific [place] Urine Protein Urine Glucose (UA) Urine Ketones Urine Blood Urine Nitrate Urine Bilirubin Urine Urobilinogen Ur Leukocyte Esterase Urine RBC Urine WBC Ur Squamous Epith Cells Urine Bacteria Urine Yeast SARS-CoV-2 (PCR) Not detected Influenza A Untype (PCR) Not detected Influenza Type B (PCR) Not detected
--- NOTE | 2021-12-29 13:14 | CARE MANAGER ---
Patient contacted related to follow up from hospital discharge. He states he is doing well. He continues with urinary catheter and it is draining some bloody urine. He follows up with Dr. Aguilera on Saturday and hopes to get the catheter out. Denies questions or concerns. NEO Borges
== END 2021-12-28 16:13 | disposition home or self-care (01) ==
LOC: ER 20:16 → 2ND 20:36
PROVIDERS: Admitting Provider Internal Medicine Adolescent Medicine; Emergency Provider Emergency Medicine; PCP Internal Medicine Adolescent Medicine; Visit Provider Internal Medicine Adolescent Medicine
DX: I10 Essential (primary) hypertension; Z20.822 Contact with and (suspected) exposure to COVID-19; R31.0 Gross hematuria; N21.0 Calculus in bladder; N39.0 Urinary tract infection, site not specified
CPT/HCPCS: G0378; 51702; 80048; 81001; 85007; 85025; 87086; 96375; 96376; 99285; C9803; J0696; J2405; U0003; U0005

== ENCOUNTER 2021-12-30 11:49 | Emergency (ER) | payer MEDICARE, SELFPAY ==
[2021-12-30] VITALS (8 sets, daily range): BP systolic 134–166; BP diastolic 68–90; PULSE 58–76; RESP 16–20; TEMP 36.8; O2SAT 95–97; BMI 27.3
--- NOTE | 2021-12-30 12:02 | HMH.EDGENADL ---
ED Disposition Clinical Impression: Hematuria Qualifiers: Hematuria type: gross Qualified Code(s): R31.0 - Gross hematuria Disposition: Home, Self-Care Condition on Discharge: Good Instructions: DI for Urinary Tract Infection (UTI), DI for Urinary Tract Infection in Children Additional Instructions: Keep catheter in. See Dr. Aguilera on Saturday as scheduled. Referrals: Cedric Farley MD [Primary Care Provider] - - Critical Care Critical Care Time: No Attestation: On 12/30/21, the high probability of a clinically significant, sudden or life threatening deterioration of the following system(s) required my full and direct attention, intervention and personal management. The time I documented below is in addition to time spent performing reported procedures but includes the following listed in this critical care notation. Medical Decision Making - Medical Records Medical records reviewed: Yes: I reviewed the patient's medical records. MR Comment: Reviewed discharge summary from recent admission 12/27/2021. Reviewed most recent urine culture result, no growth. - Jc Inquiry Pt receiving controlled substance: No Vital Signs: 12/30/21 11:59 12/30/21 12:54 12/30/21 13:00 Temperature 98.2 F Temperature Source Oral Pulse Rate 64 63 Pulse Rate [Left Radial] 76 Respiratory Rate 17 16 Blood Pressure 157/80 H 153/76 H Blood Pressure [Right Arm] 134/90 Blood Pressure Mean 116 Blood Pressure Mean [Right Arm] 104 Blood Pressure Source Blood Pressure Position Sitting 02 Sat by Pulse Oximetry 95 95 97 Oxygen Delivery Method Room Air 12/30/21 13:10 12/30/21 13:30 12/30/21 14:00 Temperature Temperature Source Pulse Rate 61 61 58 L Pulse Rate [Left Radial] Respiratory Rate 18 17 20 Blood Pressure 153/76 H 154/72 H 141/68 H Blood Pressure [Right Arm] Blood Pressure Mean 120 113 Blood Pressure Mean [Right Arm] Blood Pressure Source Automatic Cuff Blood Pressure Position Sitting 02 Sat by Pulse Oximetry 95 97 97 Oxygen Delivery Method Room Air 12/30/21 14:42 12/30/21 15:11 Temperature 98.2 F Temperature Source Oral Pulse Rate 58 L 60 Pulse Rate [Left Radial] Respiratory Rate 17 Blood Pressure 166/76 H 158/70 H Blood Pressure [Right Arm] Blood Pressure Mean Blood Pressure Mean [Right Arm] Blood Pressure Source Automatic Cuff Blood Pressure Position Sitting 02 Sat by Pulse Oximetry 95 Oxygen Delivery Method Room Air Room Air - Lab Data Lab Results 12/30/21 12:04: WBC 7.2 D, RBC 4.42 L, Hgb 13.0 L, Hct 39.4 L, MCV 89.0, MCH 29.5, MCHC 33.1, RDW 14.8, Plt Count 211, MPV 9.2, Neut % (Auto) 66.6, Lymph % (Auto) 18.2, [place] % (Auto) 7.0, Eos % (Auto) 7.2, Baso % (Auto) 1.0, Neut # (Auto) 4.8, Lymph # (Auto) 1.3, [place] # (Auto) 0.5, Eos # (Auto) 0.5 H, Baso # (Auto) 0.1 12/30/21 12:04: Sodium 141, Potassium 4.0, Chloride 110 H, Carbon Dioxide 26, Anion Gap 9.0, BUN 33 H, Creatinine 0.90, Estimated Creat Clear 73, Estimated GFR 82, Est GFR ( Amer) 99, Glucose 148 H, Calcium 9.2 Result diagrams: 12/30/21 12:04 12/30/21 12:04 Orders (Tests/Meds): ED MEDICATIONS Discontinued Medications Generic Name Dose Route Start Last Admin Trade Name Freq PRN Reason Stop Dose Admin Sterile Water 3,000 mls @ 998.983 mls/hr 12/30/21 12:05 Sterile Water For Irrigation, 3,000ml IR 01/29/22 12:04 NEEDED PRN CONTINUOUS BLADDER IRRIGATION Medical Decision Narrative: Nurses report that irrigation port of his three-way catheter is not functioning. However, they are able to irrigate the catheter drainage port and catheter will flow. 2:39 PM: Patient's urine looks like after irrigation. However, hemodynamics and blood work are unremarkable and I feel he can be discharged to follow-up with Dr. Aguilera as scheduled on Saturday. Catheter will remain in place. General Adult HPI - General Stated complaint: possibly passing too much
[2021-12-30 12:25] LABS: Basophils # 0.1 K/mm3 (0-0.2); Eosinophils # 0.5 K/mm3 (0.0-0.4); Eosinophils % 7.2 % (0.1-12.0); Hematocrit 39.4 % (42.0-52.0); Lymphocytes # 1.3 K/mm3 (0.7-4.5); Lymphocytes % 18.2 % (10-50); Mean Corpuscular HGB Conc 33.1 g/dL (31.8-35.4); Mean Corpuscular Hemoglobin 29.5 pg (27.0-31.2); Mean Platelet Volume 9.2 fl (7.4-10.4); Monocytes # 0.5 K/mm3 (0.1-1.0); Neutrophils # 4.8 K/mm3 (1.8-7.8); Neutrophils % 66.6 % (37.0-80.0); Platelet Count 211 K/mm3 (142-424); Red Blood Count 4.42 M/mm3 (4.60-6.20); Red Cell Distribution Width 14.8 % (11.5-17.5); White Blood Count 7.2 K/mm3 (4.8-10.8)
[2021-12-30 12:33] LABS: Chloride 110 mmol/L (98-107); Sodium 141 mmol/L (136-145)
[2021-12-30 12:36] LABS: Blood Urea Nitrogen 33 mg/dl (9-20); Creatinine Clearance Estimated 73 mL/min (50-200); Estimated Glomerular Filt Rate 82 ml/min (>60); GFR (African American) 99 ML/MIN (>60)
[2021-12-30 12:37] LABS: Calcium 9.2 mg/dl (8.4-10.2); Carbon Dioxide 26 mmol/L (22.0-30.0); Glucose 148 mg/dl (74-100)
== END 2021-12-30 15:15 | disposition home or self-care (01) ==
PROVIDERS: Emergency Provider Emergency Medicine; PCP Internal Medicine Adolescent Medicine
DX: T83.011A Breakdown (mechanical) of indwelling urethral catheter, initial encounter (principal); R33.9 Retention of urine, unspecified; R31.0 Gross hematuria; N48.89 Other specified disorders of penis; I10 Essential (primary) hypertension; F17.290 Nicotine dependence, other tobacco product, uncomplicated
CPT/HCPCS: 80048; 85025; 99283

== ENCOUNTER → 2022-01-17 09:16 | Outpatient (CLI) | payer MEDICARE, SELFPAY ==
[2022-01-17 09:22] LABS: MANUAL DIFFERENTIAL MANUAL DIFFERENTIAL (MANUAL DIFF)
[2022-01-17 09:41] LABS: Basophils # 0.1 K/mm3 (0-0.2); Basophils % 1.4 % (0.1-2.0); Eosinophils # 0.4 K/mm3 (0.0-0.4); Hematocrit 42.6 % (42.0-52.0); Hemoglobin 13.3 g/dL (14.1-18.0); Lymphocytes # 1.3 K/mm3 (0.7-4.5); Lymphocytes % 23.9 % (10-50); Mean Corpuscular HGB Conc 31.1 g/dL (31.8-35.4); Mean Corpuscular Hemoglobin 28.1 pg (27.0-31.2); Mean Corpuscular Volume 90.3 fl (80-94); Mean Platelet Volume 9.4 fl (7.4-10.4); Monocytes # 0.4 K/mm3 (0.1-1.0); Monocytes % 7.2 % (1.7-9.3); Neutrophils # 3.3 K/mm3 (1.8-7.8); Neutrophils % 60.5 % (37.0-80.0); Platelet Count 232 K/mm3 (142-424); Red Blood Count 4.72 M/mm3 (4.60-6.20); Red Cell Distribution Width 14.8 % (11.5-17.5); White Blood Count 5.4 K/mm3 (4.8-10.8)
[2022-01-17 09:55] LABS: Anion Gap 10.2 mEq/L (5-15); Blood Urea Nitrogen 12 mg/dl (9-20); Carbon Dioxide 30 mmol/L (22.0-30.0); Chloride 106 mmol/L (98-107); Estimated Glomerular Filt Rate 94 ml/min (>60); GFR (African American) 113 ML/MIN (>60); Glucose 124 mg/dl (74-100); Potassium 4.2 mmoL/L (3.5-5.1); Sodium 142 mmol/L (136-145)
[2022-01-17 10:28] LABS: Eosinophils % 5 % (0-3); Lymphocytes % 24 % (10-50); Monocytes % 8 % (2-9); Neutrophils % 63 % (42-76); Total Cells Counted 100
[2022-01-17 10:29] LABS: Platelet Estimate Normal; RBC Morphology Normal
== END ==
PROVIDERS: Visit Provider Urology
DX: N40.1 Benign prostatic hyperplasia with lower urinary tract symptoms (principal); Z01.812 Encounter for preprocedural laboratory examination; Z11.52 Encounter for screening for COVID-19; R31.0 Gross hematuria
CPT/HCPCS: 36415; 80048; 85007; 85014; 85018; 85048; 85049; C9803; U0003; U0005

== ENCOUNTER 2022-01-19 05:58 | Day surgery (SDC) | payer MEDICARE, SELFPAY ==
[2022-01-16 13:34] VITALS: BMI 26.6
[2022-01-19] VITALS (8 sets, daily range): BP systolic 137–176; BP diastolic 72–87; PULSE 55–61; RESP 16–18; TEMP 36.4–36.8; O2SAT 94–99
--- NOTE | 2022-01-19 10:23 | P.OP_ITS ---
Date of procedure: 01/19/22 Pre-op Diagnosis:: BPH with obstruction Post-op Diagnosis:: BPH with obstruction Procedure performed:: Urolift x6 implants Surgeon:: Mike Aguilera MD MANNEQUIN WIG MAKER:: Osman Montenegro Anesthesia: MAC Estimated blood loss (mL): 1 Clinical Note:: 76-year-old white male with history of BPH and bladder stones presents for UroLift procedure today. He has been self catheterizing recently with residuals between 200-300 cc. Operative findings:: Patient with large elongated prostate and small median lobe underwent 6 UroLift implants without difficulty. Operative note:: Patient taken to the operating room after informed consent was obtained. Was placed on the operating table in the supine position and monitored anesthesia care administered. He was then placed into the dorsolithotomy position and prepped and draped in the standard surgical fashion. The 22 Dominican cystoscope was difficult to passed through the fossa navicularis and the distal urethra was dilated with 2224 and 26 dilators. The scope then repassed without difficulty and passed to the prostatic urethra which showed an enlarged prostate gland estimated at 60 g. The bladder was entered and examined in a systematic fashion. There was some moderate trabeculation present there. The bladder neck showed some mild cautery scar from his recent cystolitholopaxy and fulguration of the bladder neck. The prostatic urethra was noted to be elongated and high in nature. After evaluation of the anatomy of the urethra it appears that 6 implants would be very likely this gentleman's case. The UroLift device was placed onto the lens and pulled back to the bladder neck and turned 90 degrees and brought back to centimeters and the prostatic tissue at that point was compressed and the first implant was deployed. After deployment there appeared to be good result that anterior tissue. The second implant was placed on the patient's left side 2 cm distal to the bladder neck at the same level as the first implant and around 930. The implant was deployed and again good result noted. Third implant was placed 2 cm distal to the first implant along the anterior plane that again 930 o'clock. Fourth implant was placed on patient's left side at the same level as the third implant and around the 3 o'clock position. There appeared to be good results and opening up the anterior channel from these 4 implants. / and sixth implant was then planned at the [place] room. Fifth implant was then placed back at the level of the bilirubin at the 9 o'clock position and the sixth implant was placed at the level of the V room anteriorly 3 o'clock position. Visualization of the prostatic urethra afterwards revealed an open anterior channel. There was some bleeding noted along the channel associated with the implants and a 20 Dominican Wagner catheter placed. Patient tolerated the procedure well no complications. Condition: stable Disposition: same day Specimens:: None Complications:: None
--- NOTE | 2022-01-19 13:10 | HMH.ANESCL ---
[facility] Anesthesia Checklist - Structural Data Admitted From: Home Planned Operative Procedure/s: urolift Consent for Planned Operative Procedure(s) Verified: Yes - Additional verifications Anesthesia Reactions: No Hx Blood Transfusions: No Blood Transfusion Reaction: No - Airway Assessment C-Spine Mobility Assessed: Yes TMJ Mobility Assessed: Yes Dentition: Good Dentition - Neurological Assessment Level of Consciousness: Awake, Alert, Appropriate - Anesthesia Plan Anesthesia Risk discussed: Yes Anesthesia Plan: Verified ASA Class: II Anesthesia Type: MAC [facility] History I have reviewed the patient's past medical history: Yes Medical History: Reports:: BPH, Hypertension Denies:: Cancer, Diabetes Mellitus Type 1, Diabetes Mellitus Type 2, Internal Pacemaker, Lung Disease, MRSA, Seizures *Have you ever received a pneumonia vaccine?: No *Have you received a flu vaccine this season?: No Other Medical History: Reports: Sinus Problems. Denies: Blood Transfusion Reaction Anesthesia experience/problems:: none Other Surgeries: Yes: No Previous Surgery, Colonoscopy, Other. No: Pacemaker Amputation: No Fractures: No - *Social History Last grade of school completed: High school graduate Smoking Status: Current every day smoker Tobacco Type: pipe # Packs/Day (cigarettes): 0 Alcohol Intake: never Alcohol Intake Frequency:: 0-2 drinks per day Substance Use Type: denies use *Occupational Status:: retired Housing: house Household Members: spouse *Travel in the last 8 weeks: None Family Hx:: No significant family history
== END 2022-01-19 09:55 | disposition home or self-care (01) ==
LOC: OR 06:00
PROVIDERS: PCP Internal Medicine Adolescent Medicine; Visit Provider Urology
DX: N40.1 Benign prostatic hyperplasia with lower urinary tract symptoms (principal); I10 Essential (primary) hypertension
CPT/HCPCS: C9740; 96374; L8699

== ENCOUNTER 2023-07-18 15:16 | Inpatient (IN) | payer MEDICARE, SELFPAY ==
[2023-07-18] VITALS (37 sets, daily range): BP systolic 56–114; BP diastolic 35–63; PULSE 73–120; RESP 22–32; TEMP 34.1–37.2; O2SAT 96–100; BMI 27.1
--- NOTE | 2023-07-18 | IR_ITS ---
APPROVED REPORT Patient Location: Emergent Sweatband Flanger: CRISTIAN Mathis RT (R) PROCEDURES Right heart catheterization Left heart catheterization Left ventriculogram Selective coronary angiogram Mechanical thrombectomy to the left main artery Drug-eluting stent deployment to the ostial through distal left main artery Drug-eluting stent deployment of the ostial LAD through the mid to distal LAD Endotracheal intubation Placement of intra-aortic balloon pump INDICATION Acute anterior lateral ST elevation myocardial infarction, Cardiogenic shock, Respiratory failure Informed consent was obtained prior to the procedure. TECHNIQUE 1% lidocaine used anesthetize the right groin the right femoral artery was accessed via the Salinger technique and a 6 Solomon Islander sheath is placed in the right femoral artery. A JL 4 guide catheter was placed in the left main artery and angiography was performed. This demonstrated an occlusion of the distal left main artery. Therapeutic heparin was administered and a Choice PT extra-support wire was placed distally from the left main artery into the LAD. A penumbra mechanical thrombectomy catheter was placed in the left main artery and thrombus was aspirated which restored PATIENCE-2 flow. A 3 mm x 38 mm [place] frontier stent was deployed at 18 layo in the left main artery which extended into the LAD. An additional 2.5 x 38 mm [place] frontier stent was placed distal to the for stent yet still overlapping the stent and deployed at 20 layo reducing the stenosis. An additional 2 mm x 26 mm [place] frontier stent was placed distal to the second stent yet still overlapping it and deployed at 18 layo. The balloon was brought back and deployed at 24 layo at the stent overlap site. Following this a 7 [place] Islander sheath was placed into the right femoral vein and a [place]ut[place]-Sarbjit catheter was floated into the pulmonary artery under fluoroscopic guidance. Following this the 6 [place] Islander sheath was exchanged over a wire and an intra-aortic balloon pump was advanced to the descending aorta and placed in a one-on-one inflation rate. Emergency room physician then proceeded with a somewhat elective endotracheal intubation. All sheaths were secured in place. Blood gases were obtained. Pulmonology/critical care physician was consulted and presented to the Rn Cardiac Cath for ventilator management and assistance. ANGIOGRAPHIC RESULTS The left main artery Was initially proximally occluded. Following revascularization the left main artery was widely patent with a distal eccentric 20% stenosis. The left anterior descending artery Had a stent which originated off the left main artery and is widely patent throughout the proximal and mid segment. There is inline flow into the distal LAD. A large ramus intermedius/first diagonal artery is jailed by the stent however PATIENCE-3 flow is present. The circumflex artery Is a nondominant system accompanied by PATIENCE-3 flow following stenting of the left main artery. There is an ostial 60% stenosis. A high first obtuse marginal artery has an ostial 90% stenosis followed by proximal 80% stenosis. The vessel is just smaller than 2 mm in diameter. The second obtuse marginal artery has a proximal 90% stenosis but is patent. The third obtuse marginal artery is moderate in size and is patent. The right coronary artery Is a dominant vessel and has diffuse moderate atheromatous plaque throughout. Proximally there appears to be diffuse 40% stenosis with a mid vessel 50 to 60% concentric stenosis followed by an additional 40% stenosis. The posterior descending artery is large and patent and has a proximal 70% stenosis with a mid vessel 90% stenosis. A large posterior lateral ventricular branch is patent with mild atheromatous plaque The NICOLE ventriculogram reveals Elina
--- OUTSIDE RECORDS SUMMARY | 2023-07-18 13:49 | XMS_ITS | Patient Health Record ---
Author Name Unknown Organization [facility] Address [address] [facility] [address] [place] [address] Care Team Providers Care Geodesy Teacher Name Role Phone Cedric Farley Primary Care Provider [phone] Cedric Farley Unavailable Unavailable ALLERGIES No Known Allergies REASON FOR REFERRAL No Information MEDICATIONS Medication SIG (Take, Route, Frequency, Duration) Notes Start Date End Date Status AZO Urinary Pain Relief 95 mg 2 tab(s) orally 3 times a day (after meals) for 2 day(s) prn Active Charla 180 mg 1 tab qd prn Ac tive SOCIAL HISTORY Tobacco Use: Social History Observation Description Date Details (start date - stop date) Light tobacco s moker NA - NA Sex Assigned At : Social History Observation Description Sex Assigned At Unknown Smoking: Question Answer Notes Are you a: light tobacco smoker Additional Findings: Tobacco User Pipe smoker PROBLEMS Problem Type ICD Code Onset Dates Problem Status W/U Status Risk SNOMED Code Notes Problem Vasomotor rhinitis (J30.0) Active confirmed 6174088 Problem Calculus in bladder (N21.0) Active confirmed Calculus of bladder (09453861)
[2023-07-18 14:44] LABS: ABG Base Excess -11.6 mmol/L (-2.4-2.3); ABG HCO3 15.5 mmhg (22.0-26.0); ABG Oxygen Saturation 93 % (90-100); ABG PCO2 35.3 mmhg (35.0-45.0); ABG PH 7.26 mmol/L (7.35-7.45); ABG PO2 74.4 mmhg (80-100); ABG TCO2 16.6 mmhg (23-27)
[2023-07-18 14:45] LABS: ABG Base Excess -12.9 mmol/L (-2.4-2.3); ABG HCO3 14.3 mmhg (22.0-26.0); ABG Oxygen Saturation 100 % (90-100); ABG PCO2 33.5 mmhg (35.0-45.0); ABG PH 7.25 mmol/L (7.35-7.45); ABG PO2 311.6 mmhg (80-100); ABG TCO2 15.4 mmhg (23-27)
[2023-07-18 14:47] LABS: Oxygen 100% NRB %
[2023-07-18 14:48] LABS: Source ARTLINE
[2023-07-18 14:48] LABS: Oxygen 100% %; PEEP 12; Source ARTLINE; Tidal Volume 440; Vent Rate 20
[2023-07-18 15:20] LABS: CATHL Activated Clotting Time 259 SEC (74-125)
--- NOTE | 2023-07-18 15:28 | XR_ITS ---
PROCEDURE INFORMATION: Exam: XR Chest Exam date and time: 07/18/2023 4:52 PM Age: 77 years old Clinical indication: Device placement; Ett placement (vent status); Patient HX: Post intubation after cardiac cath procedure. TECHNIQUE: Imaging protocol: Radiologic exam of the chest. Views: 1 view. COMPARISON: CR CXR2V XR chest 2V 10/10/2018 11:01 AM FINDINGS: Tubes, catheters and devices: The endotracheal tube appears appropriately positioned terminating 4.1 cm from the jett. The enteric tube extends well below the diaphragm with the tip off the film. Inferior approach pulmonary arterial catheter terminates at the level of the right pulmonary artery. Lungs: Mild bilateral perihilar pulmonary opacities may represent aspiration or pulmonary edema. Pleural spaces: Normal No pleural effusion. No pneumothorax. Heart/Mediastinum: Normal. No cardiomegaly. Bones/joints: Unremarkable. IMPRESSION: 1. The endotracheal tube appears appropriately positioned terminating 4.1 cm from the jett. 2. The enteric tube extends well below the diaphragm with the tip off the film. 3. Inferior approach pulmonary arterial catheter terminates at the level of the right pulmonary artery. 4. Mild bilateral perihilar pulmonary opacities may represent aspiration or pulmonary edema.
[2023-07-18 15:35] LABS: Microscopic, Urine URINE MICROSCOPIC (MICROSCOPIC)
[2023-07-18 15:38] LABS: Appearance,Urine SL CLOUDY (Clear); Blood, Urine 3+ (Negative); Color,Urine DARK YELLOW (Yellow); Glucose,Urine (UA) 2+ (Negative); Ketones,Urine TRACE (Negative); Leukocyte Esterase,Urine Negative (Negative); Nitrate,Urine POSITIVE (Negative); Protein,Urine 2+ (Negative); Specific Gravity, Urine >= 1.030 (1.005-1.030)
[2023-07-18 15:43] LABS: Bilirubin,Urine 2+ (Negative)
[2023-07-18 15:44] LABS: Bacteria,Urine 2+ /lpf; Hyaline Casts,Urine Occasional #/lpf (0); RBC,Urine 20-50 #/hpf (0-3); Squamous Epithelial Cell,Urine Occasional #/hpf (0-5); WBC,Urine Occasional #/hpf (0-3)
--- NOTE | 2023-07-18 16:15 | ECG_ITS ---
APPROVED REPORT Exam: Resting ECG HR:82 bpm ECG Measurements Heart Rate 82 AXES ID 152 P 17 QRSd 99 QRS -27 QT 389 T -57 QTc 427 Conclusion SINUS RHYTHM WITH OCCASIONAL SUPRAVENTRICULAR PREMATURE COMPLEXES LOW QRS VOLTAGE IN PRECORDIAL LEADS [QRS DEFLECTION < 1.0 mV IN CHEST LEADS] INCOMPLETE RIGHT BUNDLE BRANCH BLOCK [90+ ms QRS DURATION, TERMINAL R IN V1/V2, 40+ ms S IN I/aVL/V4/V5/V6] SEPTAL MYOCARDIAL INFARCTION , PROBABLY RECENT [40+ ms Q WAVE IN V1/V2] INFERIOR MYOCARDIAL INFARCTION , OF INDETERMINATE AGE [40+ ms Q WAVE AND/OR ST/T ABNORMALITY IN II/aVF] ACUTE OK UNCONFIRMED REPORT Electronically signed by : Cedric Farley MD 07/18/2023 20:55:41
[2023-07-18 16:45] LABS: ABG Base Excess -13.2 mmol/L (-2.4-2.3); ABG Oxygen Saturation 97 % (90-100); ABG PCO2 32.9 mmhg (35.0-45.0); ABG PH 7.25 mmol/L (7.35-7.45); ABG PO2 93.9 mmhg (80-100); Oxygen 50% %; PEEP 10; Source ARTLINE; Tidal Volume 440; Vent Rate 26
--- NOTE | 2023-07-18 16:45 | EXP.PULM.CON ---
History of Present Illness History of present illness: Much of the history is obtained from chart review. Patient intubated and sedated. Ms. Steiner is 77-year-old male presented to the hospital a STEMI alert status post LAD occlusion and stenting with revascularization found to be in cardiogenic shock needing aortic balloon pump placement and vasopressor support was intubated for airway support and was currently on mechanical ventilatory support and pulmonary was called for further evaluation and management [facility] Disclaimer: The information contained in this section may have been updated after the patient was seen, as this information can be updated by other users. Medical History (Updated 07/18/23 @ 16:47 by Joelle Melgar MD) Acute respiratory failure with hypoxia On mechanically assisted ventilation Social History Smoking Status: Current some day smoker tobacco type: pipe alcohol intake: current substance use type: denies use current occupational status: retired Travel in the last 8 weeks: None household members: spouse housing: house caffeine: Yes Review of Systems Review of Systems Review of systems:: unable to obtain Review of systems (narrative): Intubated And Sedated Pulmonology Exam Inpatient Vital signs and Labs for Last 24 Hours: Resp Pulse Ox FiO2 29 H 96 50 07/18/23 13:45 07/18/23 13:45 07/18/23 13:45 Laboratory Results - last 24 hr 07/18/23 13:43: Specimen Source Artline, O2 % 100% nrb, ABG pH 7.26 L, ABG pCO2 35.3, ABG pO2 74.4 L, ABG HCO3 15.5 L, ABG Total CO2 16.6 L, ABG O2 Saturation 93, ABG Base Excess -11.6 L 07/18/23 14:24: Specimen Source Artline, O2 % 100%, ABG pH 7.25 L, ABG pCO2 33.5 L, ABG pO2 311.6 H, ABG HCO3 14.3 L, ABG Total CO2 15.4 L, ABG O2 Saturation 100, ABG Base Excess -12.9 L, Vent Rate 20, Tidal Volume 440, PEEP 12 07/18/23 14:40: Activated Clotting Time 259 H* 07/18/23 14:53: Urine Color Dark yellow, Urine Appearance Sl cloudy, Urine pH 5.0, Ur Specific [place] >= 1.030, Urine Protein 2+, Urine Glucose (UA) 2+, Urine Ketones Trace, Urine Blood 3+, Urine Nitrate Positive, Urine Bilirubin 2+ A, Urine Urobilinogen 2.0, Ur Leukocyte Esterase Negative, Urine RBC 20-50, Urine WBC Occasional, Ur Squamous Epith Cells Occasional, Urine Bacteria 2+, Hyaline Casts Occasional I & O for Labs for Last 24 Hours: Intake & Output 07/15/23 07/16/23 07/17/23 07/18/23 23:59 23:59 23:59 23:59 Intake Total 53.414 / 53.414 Balance 53.414 / 53.414 Weight 200 lb Constitutional: Present severe distress Comment:: Intubated and Sedated Head: Present normocephalic and atraumatic Neck: Present normal inspection and trachea midline Respiratory: Present patient mechanically ventilated, respiratory distress, rhonchi and wheezes; Absent prolonged expiratory phase Cardiac: Present S1/S2 and Tachycardia GI: Present soft; Absent distention or tenderness Skin: Present intact; Absent cyanosis Neuro: Absent alert, awake or oriented x 3 Comment:: Intubated and sedated Extremities: Absent clubbing or cyanosis Psychiatric: Present unable to assess Meds Home Medications and Allergies Home Medications Medication Instructions Recorded Confirmed Type No Known Home Medications 01/16/22 02/20/22 History New Prescriptions to Start Prescriptions: Allergies Allergy/AdvReac Type Severity Reaction Status Date / Time No Known Allergies Allergy Verified 02/20/22 13:42 Results Laboratory Findings ABG ABG pH 7.25 mmol/L (7.35-7.45) L 07/18/23 14:24 ABG pCO2 33.5 mmhg (35.0-45.0) L 07/18/23 14:24 ABG pO2 311.6 mmhg (80-100) H 07/18/23 14:24 ABG O2 Saturation 100 % (90-100) 07/18/23 14:24 Abnormal lab findings: Abnormal Labs 07/18/23 07/18/23 07/18/23 13:43 14:24 14:40 Activated Clotting Time 259 H* ABG pH 7.26 L 7.25 L ABG pCO2 33.5 L ABG pO2 74.4 L 311.6 H ABG HCO3 15.5 L 14.3 L ABG Total
--- NOTE | 2023-07-18 16:58 | SUR.PHASEII ---
patient taken directly from general labor to floor, bedside report given to Lorne tubbs.
--- NOTE | 2023-07-18 18:15 | PC.NURSE ---
verbal order received from dr valadez. 500ml warm fluid bolus of ns at 150ml/hr. stat cbc and cmp 0154
[2023-07-18 18:19] LABS: Basophils % 0.2 % (0.1-2.0); Eosinophils # 0.1 K/mm3 (0.0-0.4); Eosinophils % 0.2 % (0.1-12.0); Hemoglobin 15.2 g/dL (14.1-18.0); Lymphocytes # 1.8 K/mm3 (0.7-4.5); Mean Corpuscular HGB Conc 32.9 g/dL (31.8-35.4); Mean Corpuscular Hemoglobin 31.1 pg (27.0-31.2); Mean Corpuscular Volume 94.4 fl (80-94); Mean Platelet Volume 11.5 fl (7.4-10.4); Monocytes # 1.2 K/mm3 (0.1-1.0); Monocytes % 5.7 % (1.7-9.3); Neutrophils # 17.3 K/mm3 (1.8-7.8); Neutrophils % 84.9 % (37.0-80.0); Platelet Count 221 K/mm3 (142-424); Red Blood Count 4.87 M/mm3 (4.60-6.20); White Blood Count 20.3 K/mm3 (4.8-10.8)
[2023-07-18 18:24] LABS: MANUAL DIFFERENTIAL MANUAL DIFFERENTIAL (MANUAL DIFF)
[2023-07-18 18:26] LABS: Chloride 107 mmol/L (98-107); Potassium 3.2 mmoL/L (3.5-5.1); Sodium 140 mmol/L (136-145)
[2023-07-18 18:29] LABS: Alanine Aminotransferase 177 U/L (12-78); Albumin Level 3.1 g/dl (3.5-5.0); Albumin/Globulin Ratio 1.2 (1.1-1.8); Alkaline Phosphatase 76 U/L (38-126); Anion Gap 19.2 mEq/L (5-15); Aspartate Amino Transferase 648 U/L (17-59); Bilirubin,Total 0.5 mg/dl (0.2-1.3); Blood Urea Nitrogen 23 mg/dl (9-20); Carbon Dioxide 17 mmol/L (22.0-30.0); Creatinine Clearance Estimated 56 mL/min (50-200); Estimated Glomerular Filt Rate 49 ml/min (>60); GFR (African American) 59 ML/MIN (>60); Globulin 2.5 g/dL (1.3-3.2); Total Protein,Serum 5.6 g/dl (6.3-8.2)
[2023-07-18 18:30] LABS: Calcium 7.4 mg/dl (8.4-10.2); Glucose 358 mg/dl (74-100)
[2023-07-18 18:42] LABS: Lymphocytes % 10 % (10-50); Monocytes % 5 % (2-9); Neutrophils % 85 % (42-76); Total Cells Counted 100
[2023-07-18 18:43] LABS: Burr Cells 1+; Platelet Estimate Normal
--- NOTE | 2023-07-18 18:43 | EXP.HP ---
History of Present Illness *Admission Date: 07/18/23 *Reason for visit:: STEMI *History of present illness: Patient is a 77-year-old male who presented to hospital as a STEMI alert, patient had cardiac cath With Stenting. Patient Went into cardiogenic shock intubated was put on aortic balloon pump and was admitted to the hospital. At time of my evaluation patient is intubated sedated and is unable to provide any history due to clinical condition [facility] Disclaimer: The information contained in this section may have been updated after the patient was seen, as this information can be updated by other users. Medical History (Updated 07/18/23 @ 18:46 by Norberto Marques MD) Acute respiratory failure with hypoxia On mechanically assisted ventilation Social History Smoking Status: Current some day smoker tobacco type: pipe alcohol intake: current substance use type: denies use current occupational status: retired Travel in the last 8 weeks: None household members: spouse housing: house caffeine: Yes Review of Systems Review of Systems Review of systems:: pertinent systems reviewed and negative unless documented below Meds Home Medications and Allergies Home Medications Medication Instructions Recorded Confirmed Type No Known Home Medications 01/16/22 02/20/22 History New Prescriptions to Start Prescriptions: Allergies Allergy/AdvReac Type Severity Reaction Status Date / Time No Known Allergies Allergy Verified 02/20/22 13:42 Exam Data for Last 24 hours Vital signs and Labs for Last 24 Hours: Pulse Resp Pulse Ox O2 Del Method FiO2 86 26 H 98 Oxy [place] 50 07/18/23 18:07 07/18/23 18:07 07/18/23 18:07 07/18/23 18:07 07/18/23 18:07 Laboratory Results - last 24 hr 07/18/23 13:43: Specimen Source Artline, O2 % 100% nrb, ABG pH 7.26 L, ABG pCO2 35.3, ABG pO2 74.4 L, ABG HCO3 15.5 L, ABG Total CO2 16.6 L, ABG O2 Saturation 93, ABG Base Excess -11.6 L 07/18/23 14:24: Specimen Source Artline, O2 % 100%, ABG pH 7.25 L, ABG pCO2 33.5 L, ABG pO2 311.6 H, ABG HCO3 14.3 L, ABG Total CO2 15.4 L, ABG O2 Saturation 100, ABG Base Excess -12.9 L, Vent Rate 20, Tidal Volume 440, PEEP 12 07/18/23 14:25: WBC 20.3 H*, RBC 4.87, Hgb 15.2, Hct 46.0, MCV 94.4 H, MCH 31.1, MCHC 32.9, RDW 15.0, Plt Count 221, MPV 11.5 H, Neut % (Auto) 84.9 H, Lymph % (Auto) 9.0 L, [place] % (Auto) 5.7, Eos % (Auto) 0.2, Baso % (Auto) 0.2, Neut # (Auto) 17.3 H, Lymph # (Auto) 1.8, [place] # (Auto) 1.2 H, Eos # (Auto) 0.1, Baso # (Auto) 0.0, Total Counted 100, Neutrophils % (Manual) 85 H, Lymphocytes % (Manual) 10, Monocytes % (Manual) 5, Platelet Estimate Normal, RBC Morphology Not Reportable, [place] Cells 1+, Sodium 140, Potassium 3.2 L, Chloride 107, Carbon Dioxide 17 L, Anion Gap 19.2 H, BUN 23 H, Creatinine 1.40 H, Estimated Creat Clear 56, Estimated GFR 49 L, Est GFR ( Amer) 59, Glucose 358 H, Calcium 7.4 L, Total Bilirubin 0.5, AST 648 H*, ALT 177 H, Alkaline Phosphatase 76, Total Protein 5.6 L, Albumin 3.1 L, Globulin 2.5, Albumin/Globulin Ratio 1.2 07/18/23 14:40: Activated Clotting Time 259 H* 07/18/23 14:53: Urine Color Dark yellow, Urine Appearance Sl cloudy, Urine pH 5.0, Ur Specific [place] >= 1.030, Urine Protein 2+, Urine Glucose (UA) 2+, Urine Ketones Trace, Urine Blood 3+, Urine Nitrate Positive, Urine Bilirubin 2+ A, Urine Urobilinogen 2.0, Ur Leukocyte Esterase Negative, Urine RBC 20-50, Urine WBC Occasional, Ur Squamous Epith Cells Occasional, Urine Bacteria 2+, Hyaline Casts Occasional 07/18/23 15:36: Specimen Source Artline, O2 % 50%, ABG pH 7.25 L, ABG pCO2 32.9 L, ABG pO2 93.9, ABG HCO3 14.0 L, ABG Total CO2 15.0 L, ABG O2 Saturation 97, ABG Base Excess -13.2 L, Vent Rate 26, Tidal Volume 440, PEEP 10 I & O for Last 24 hours: Intake & Output 07/15/23 07/16/23 07/17/23 07/18/23 23:59 23:59 23:59 23:59 Intake Total 81.794 / 81.794 Balance 81.794 / 81.794 Weight 90.718 kg *Routine TIFFANIE
[2023-07-18 18:54] LABS: Basophils # 0.1 K/mm3 (0-0.2); Basophils % 0.2 % (0.1-2.0); Eosinophils # 0.1 K/mm3 (0.0-0.4); Eosinophils % 0.6 % (0.1-12.0); Hematocrit 48.4 % (42.0-52.0); Hemoglobin 15.8 g/dL (14.1-18.0); Lymphocytes # 1.4 K/mm3 (0.7-4.5); Lymphocytes % 5.5 % (10-50); Mean Corpuscular HGB Conc 32.6 g/dL (31.8-35.4); Mean Corpuscular Hemoglobin 30.3 pg (27.0-31.2); Mean Corpuscular Volume 92.7 fl (80-94); Mean Platelet Volume 10.3 fl (7.4-10.4); Monocytes # 1.2 K/mm3 (0.1-1.0); Monocytes % 4.8 % (1.7-9.3); Neutrophils # 21.7 K/mm3 (1.8-7.8); Neutrophils % 88.8 % (37.0-80.0); Platelet Count 220 K/mm3 (142-424); Red Blood Count 5.22 M/mm3 (4.60-6.20); Red Cell Distribution Width 15.2 % (11.5-17.5); White Blood Count 24.4 K/mm3 (4.8-10.8)
[2023-07-18 19:47] LABS: Chloride 106 mmol/L (98-107); Potassium 3.2 mmoL/L (3.5-5.1); Sodium 139 mmol/L (136-145)
[2023-07-18 19:50] LABS: Alanine Aminotransferase 176 U/L (12-78); Albumin Level 3.1 g/dl (3.5-5.0); Albumin/Globulin Ratio 1.3 (1.1-1.8); Alkaline Phosphatase 77 U/L (38-126); Anion Gap 19.2 mEq/L (5-15); Aspartate Amino Transferase 636 U/L (17-59); Bilirubin,Total 0.4 mg/dl (0.2-1.3); Blood Urea Nitrogen 25 mg/dl (9-20); Carbon Dioxide 17 mmol/L (22.0-30.0); Creatinine Clearance Estimated 52 mL/min (50-200); Estimated Glomerular Filt Rate 45 ml/min (>60); GFR (African American) 55 ML/MIN (>60); Globulin 2.4 g/dL (1.3-3.2); Total Protein,Serum 5.5 g/dl (6.3-8.2)
[2023-07-18 19:51] LABS: Calcium 7.5 mg/dl (8.4-10.2); Glucose 360 mg/dl (74-100)
[2023-07-18 20:04] LABS: ABG Base Excess -4.9 mmol/L (-2.4-2.3); ABG HCO3 19.1 mmhg (22.0-26.0); ABG Oxygen Saturation 99 % (90-100); ABG PCO2 28.5 mmhg (35.0-45.0); ABG PH 7.45 mmol/L (7.35-7.45); ABG PO2 159.4 mmhg (80-100)
[2023-07-18 20:05] LABS: Allen's Test Non Applicable; Oxygen 50 %; PEEP 10; Source Right Radial; Tidal Volume 440; Vent Rate 26
[2023-07-18 20:09] LABS: Free T4 (Free Thyroxine) 2.03 ng/dl (0.78-2.19)
--- NOTE | 2023-07-18 20:20 | PC.NURSE ---
Dr. Mendiola called RN for pt status update, including current NE gtt @ 30 mcg/kg/min to maintain SBP >90 and MAP >65 as ordered based on ART-line. Dr. Mendiola says to no longer titrate up levophed gtt and to titrate based on NIBP. Current NIBP 116/53 (74), titrated down to 28 mcg/kg/min on phone with MD. Dr. Mendiola also said to administer full 1 L NS at 150 mL/hr and to call Dr. Chiu regarding ABG results. 2022: Paged Dr. Chiu to read ABG results. Dr. Chiu said he will notify RT to change RR.
[2023-07-18 20:22] LABS: Thyroid Stimulating Hormone 1.41 uIU/mL (0.465-4.68)
--- NOTE | 2023-07-18 20:24 | PC.NURSE ---
pt arrive on unit at approx 1600. transporting pt are silvia felix, kalani and ronal in laborer heading. pt settled into room by staff. report received from destiney garcia at 1635. artline placed by Dr mendiola at bedside at 1630. 1615 rectal temp obtained by destiney garcia 94.6 rectally. warm blankets applied, bare paws applied. rectal temp at 1730 93.3. 2nd bare paws applied, warm blankets applied. [address] Mendiola on phone. notified of pt temp, order receeived from 500 ml of warm fluids. start admin at 1800. rectal temp 95.8 checked at 1840.
--- NOTE | 2023-07-18 20:31 | PC.NURSE ---
Addendum entered by Filomena Garcia RN 07/19/23 02:54: NE gtt titrated based on MAP goal. 2019 - NE @ 25 (NIBP 109/55 (73)) 2044 - NE @ 22 2230 - NE @ 18 2245 - NE @ 16 2300 - NE @ 14 2315 - NE @ 12 2345 - NE @ 10 0000 - NE @ 8 0030 - NE @ 7 mcg/kg/min Original Note: Titrations: 2000 - NE @ 14 (ART-BP 50/30's) 2004 - NE @ 20 (ART - BP 70/40's) 2007 - NE @ 25 (ART - BP 70/40's) 2012 - NE @ 30 (ART - BP 80/50's) 2019 - NE @ 25 (NIBP 109/55)
--- NOTE | 2023-07-18 20:54 | PC.NURSE ---
abdoul sauerer removed at 2049. rectal temperature 98.9
[2023-07-19] VITALS (48 sets, daily range): BP systolic 60–133; BP diastolic 28–77; PULSE 72–115; RESP 24–34; TEMP 36.4–37.6; O2SAT 94–100; BMI 24.0
--- NOTE | 2023-07-19 | PC.NURSE ---
Pt continues to have 0 mL UOP. Flushed 10 mL NS through line, 10 mL obtained, no clots seen on return. Bladder scan performed: 0 mL scanned. No bladder distention or discomfort at this time. Able to titrate pt down to 20 mcg/kg/min propofol gtt (RASS -5) and 8 mcg/min NE (MAP's documented in VS). NS currently infusing at 150 mL/hr telephone order when technical laboratory asst RN at bedside.
--- NOTE | 2023-07-19 02:46 | PC.NURSE ---
Addendum entered by Filomena Garcia RN 07/19/23 05:57: Propofol gtt had been titrated per order from 20 mcg/kg/min to 0 mcg/kg/min from original note time and previous note due to pt's RASS -5. Original Note: Titrated pt down to NE @ 7 mcg/min (based on MAPs documented in VS) and prop paused due to RASS -5 at 0215. Upon 0245 assessment, pt moving all extremities without purpose, eyes closed, and fighting ventilator, RASS +1. Pt unable to follow commands at this time, did not reach for any lines or vent. Prop restarted at 5 mcg/kg/min, pt sedated.
--- NOTE | 2023-07-19 04:27 | PC.NURSE ---
Notified Dr. Mendiola of decreasing BP. Augmentation on IABP fluctuating from 68-71. MD ordered one time 500 mL bolus of NS. MD also said to continue IVF of NS at 100 mL/hr.
[2023-07-19 05:46] LABS: ABG Base Excess -17.2 mmol/L (-2.4-2.3); ABG HCO3 10.1 mmhg (22.0-26.0); ABG Oxygen Saturation 98 % (90-100); ABG PCO2 24.1 mmhg (35.0-45.0); ABG PH 7.24 mmol/L (7.35-7.45); ABG PO2 135.1 mmhg (80-100); ABG TCO2 10.9 mmhg (23-27)
[2023-07-19 05:47] LABS: Oxygen 50% %; PEEP 10; Source ARTLINE; Tidal Volume 440; Vent Rate 22
[2023-07-19 05:49] LABS: Lactate Arterial 10.2 mmol/L (0.4-2.0)
--- NOTE | 2023-07-19 06:00 | XR_ITS ---
PROCEDURE INFORMATION: Exam: XR Chest Exam date and time: 07/19/2023 5:05 AM Age: 77 years old Clinical indication: Device placement; Intra - aortic balloon pump (iabp); Additional info: Verify balloon pump, ett, og tube TECHNIQUE: Imaging protocol: Radiologic exam of the chest. Views: 1 view. COMPARISON: CR XR CHEST PORTABLE 07/18/2023 4:52 PM FINDINGS: Tubes, catheters and devices: An endotracheal catheter is noted with its tip overlying the level just below the thoracic inlet. An enteric catheter extends to the abdomen, tip not imaged. A transfemoral Ajo-Sarbjit catheter is present. A transcutaneous pacemaker pad overlies and obscures the right chest. Lungs: Hazy bibasilar opacities are noted. Pleural spaces: Unremarkable. No pleural effusion. No pneumothorax. Heart/Mediastinum: Unremarkable. No cardiomegaly. Bones/joints: The bones are osteopenic. IMPRESSION: Support lines and catheters in place as described. Hazy bibasilar opacities.
--- NOTE | 2023-07-19 06:15 | PC.NURSE ---
Notified Dr. Mendiola of continued hypotension (70's-40's, MAP of 54-57) despite 1 L total bolus and NE @ 7 mcg/kg/min. MD stated to administer 1 amp of bicarb IVP, then administer 0.5 mg epi (half amp), and start on low-dose epi gtt. 0.5 mg epi administered. Pt sustained multiple runs of Vtach at 0633 and 0634, notified Dr. Mendiola. said to continue to monitor at this time.
[2023-07-19 06:36] LABS: Blood Urea Nitrogen 27 mg/dl (9-20); Calcium 7.1 mg/dl (8.4-10.2); Chloride 111 mmol/L (98-107); Creatinine Clearance Estimated 23 mL/min (50-200); Estimated Glomerular Filt Rate 20 ml/min (>60); GFR (African American) 25 ML/MIN (>60); Glucose 152 mg/dl (74-100); Sodium 139 mmol/L (136-145)
[2023-07-19 06:50] LABS: Carbon Dioxide 9 mmol/L (22.0-30.0)
--- NOTE | 2023-07-19 07:35 | PC.NURSE ---
[place] [id number] 75/45 (55) and continued IABP BP of 50's/40's. Epi gtt already running at 6 mcg/min. MD stated to give another amp of bicarb IVP now, which was administered, and to continue to go up on epi gtt. Clarified with MD to titrate epi only, not NE gtt. MD agreed, saying only epi gtt, do not titrate up on NE gtt.
--- NOTE | 2023-07-19 07:44 | PC.NURSE ---
IABP 61/41 (62) PAP 39/18 (18)
[2023-07-19 07:58] LABS: ABG Base Excess -18.1 mmol/L (-2.4-2.3); ABG HCO3 10.6 mmhg (22.0-26.0); ABG Oxygen Saturation 95 % (90-100); ABG PCO2 30.7 mmhg (35.0-45.0); ABG PO2 98.8 mmhg (80-100); ABG TCO2 11.6 mmhg (23-27)
[2023-07-19 07:59] LABS: Oxygen 50% %; PEEP 10; Source ARTLINE; Tidal Volume 440; Vent Rate 22
[2023-07-19 08:01] LABS: ABG PH 7.16 mmol/L (7.35-7.45)
[2023-07-19 08:03] LABS: Lactate Arterial 13.8 mmol/L (0.4-2.0)
--- NOTE | 2023-07-19 08:09 | PC.NURSE ---
notified MD Mendiola of ABG results
--- NOTE | 2023-07-19 08:12 | PC.NURSE ---
spoke with MD Mendiola and MD Melgar, instructed to give 500mL NS per MD Mendiola and 1 amp bicarb per MD Melgar, both started and given MD Melgar stated going to speak with MD Mendiola
[2023-07-19 08:54] LABS: ABG Base Excess -19.8 mmol/L (-2.4-2.3); ABG HCO3 9.3 mmhg (22.0-26.0); ABG Oxygen Saturation 95 % (90-100); ABG PCO2 28.7 mmhg (35.0-45.0); ABG PO2 105.2 mmhg (80-100); ABG TCO2 10.2 mmhg (23-27); Oxygen 50 %; PEEP 10; Tidal Volume 440; Vent Rate 26
[2023-07-19 08:55] LABS: Source A-LINE
[2023-07-19 08:56] LABS: ABG PH 7.13 mmol/L (7.35-7.45); Lactate Arterial 15.3 mmol/L (0.4-2.0)
--- NOTE | 2023-07-19 08:57 | HMH.PHAHEP ---
[facility] Pharmacy Heparin Dosing Demographic Data Admission date:: 07/18/23 Date: 07/19/23 Time: 08:57 Allergies Allergy/AdvReac Type Severity Reaction Status Date / Time No Known Allergies Allergy Verified 02/20/22 13:42 Height: 1.83 m Weight: 80.7 kg Indication Medication therapy:: Heparin Current Active Problems (Updated 07/18/23 @ 20:18 by Jaqueline Luz RN) Cardiogenic shock (Acute) STEMI (ST elevation myocardial infarction) (Acute) GARY (acute kidney injury) (Acute) On mechanically assisted ventilation (Acute) Acute respiratory failure with hypoxia (Acute) CVA?: No Bleeding problem?: No Kidney disease?: No NC?: Yes Desired PTT range:: 50-75 seconds Labs Anticoagulation Lab Results:: 07/18/23 07/18/23 14:25 18:31 Hgb 15.2 15.8 Hct 46.0 48.4 Plt Count 221 220 Monitoring Dose Monitor 1: Date: 07/18/23 Time: 14:15 PTT Result:: NO DRAWN, PATIENT IN JET MAN Infusion Rate:: STARTED AT 1200 UNITS/HR (REPORTED WEIGHT OF 220 LBS). PATIENT WAS BOLUSED IN JET MAN WITH 22426 UNITS OF HEPARIN AND 3000 UNITS OF HEPARIN. Dose Monitor 2: Date: 07/19/23 Time: 10:10 PTT Result:: >200 Infusion Rate:: DECREASED RATE TO 19 ML/HR (950 UNITS/HR) RECHECK IN 1 HR. Comment:: transferred to secondary hospital Core Measures Is INR > or = 2 at discharge?: No Most Recent Labs:: Laboratory Results - last 24 hr 07/18/23 13:43: Specimen Source Artline, O2 % 100% nrb, ABG pH 7.26 L, ABG pCO2 35.3, ABG pO2 74.4 L, ABG HCO3 15.5 L, ABG Total CO2 16.6 L, ABG O2 Saturation 93, ABG Base Excess -11.6 L 07/18/23 14:24: Specimen Source Artline, O2 % 100%, ABG pH 7.25 L, ABG pCO2 33.5 L, ABG pO2 311.6 H, ABG HCO3 14.3 L, ABG Total CO2 15.4 L, ABG O2 Saturation 100, ABG Base Excess -12.9 L, Vent Rate 20, Tidal Volume 440, PEEP 12 07/18/23 14:25: WBC 20.3 H*, RBC 4.87, Hgb 15.2, Hct 46.0, MCV 94.4 H, MCH 31.1, MCHC 32.9, RDW 15.0, Plt Count 221, MPV 11.5 H, Neut % (Auto) 84.9 H, Lymph % (Auto) 9.0 L, [place] % (Auto) 5.7, Eos % (Auto) 0.2, Baso % (Auto) 0.2, Neut # (Auto) 17.3 H, Lymph # (Auto) 1.8, [place] # (Auto) 1.2 H, Eos # (Auto) 0.1, Baso # (Auto) 0.0, Total Counted 100, Neutrophils % (Manual) 85 H, Lymphocytes % (Manual) 10, Monocytes % (Manual) 5, Platelet Estimate Normal, RBC Morphology Not Reportable, [place] Cells 1+, Sodium 140, Potassium 3.2 L, Chloride 107, Carbon Dioxide 17 L, Anion Gap 19.2 H, BUN 23 H, Creatinine 1.40 H, Estimated Creat Clear 56, Estimated GFR 49 L, Est GFR ( Amer) 59, Glucose 358 H, Calcium 7.4 L, Total Bilirubin 0.5, AST 648 H*, ALT 177 H, Alkaline Phosphatase 76, Total Protein 5.6 L, Albumin 3.1 L, Globulin 2.5, Albumin/Globulin Ratio 1.2, TSH 1.41, Free T4 2.03 07/18/23 14:40: Activated Clotting Time 259 H* 07/18/23 14:53: Urine Color Dark yellow, Urine Appearance Sl cloudy, Urine pH 5.0, Ur Specific [place] >= 1.030, Urine Protein 2+, Urine Glucose (UA) 2+, Urine Ketones Trace, Urine Blood 3+, Urine Nitrate Positive, Urine Bilirubin 2+ A, Urine Urobilinogen 2.0, Ur Leukocyte Esterase Negative, Urine RBC 20-50, Urine WBC Occasional, Ur Squamous Epith Cells Occasional, Urine Bacteria 2+, Hyaline Casts Occasional 07/18/23 15:36: Specimen Source Artline, O2 % 50%, ABG pH 7.25 L, ABG pCO2 32.9 L, ABG pO2 93.9, ABG HCO3 14.0 L, ABG Total CO2 15.0 L, ABG O2 Saturation 97, ABG Base Excess -13.2 L, Vent Rate 26, Tidal Volume 440, PEEP 10 07/18/23 18:31: WBC 24.4 H*, RBC 5.22, Hgb 15.8, Hct 48.4, MCV 92.7, MCH 30.3, MCHC 32.6, RDW 15.2, Plt Count 220, MPV 10.3, Neut % (Auto) 88.8 H, Lymph % (Auto) 5.5 L, [place] % (Auto) 4.8, Eos % (Auto) 0.6, Baso % (Auto) 0.2, Neut # (Auto) 21.7 H, Lymph # (Auto) 1.4, [place] # (Auto) 1.2 H, Eos # (Auto) 0.1, Baso # (Auto) 0.1, Sodium 139, Potassium 3.2 L, Chloride 106, Carbon Dioxide 17 L, Anion Gap 19.2 H, BUN 25 H, Creatinine 1.50 H, Estimated Creat Clear 52, Estimated GFR 45 L, Est GFR ( Amer) 55 L, Glucose 360 H, Calcium 7.5 L, T
--- NOTE | 2023-07-19 09:10 | PC.NURSE ---
notified MD Mendiola of pt's ABG results, ordered 2 amps bicarb stat
--- NOTE | 2023-07-19 09:17 | PC.NURSE ---
MD Mendiola instructed this RN to give another 500mL NS IV bolus, bolus started
--- NOTE | 2023-07-19 09:24 | PC.NURSE ---
MD Mendiola at bedside speaking with family, trying to get pt transferred to [facility] for Impella 5.5
--- NOTE | 2023-07-19 09:35 | PC.NURSE ---
left message for MD Mendiola about pt's hypotension with pressors and bolus going
[2023-07-19 09:45] LABS: Reflex Lactic Add Lactic Reflex
--- NOTE | 2023-07-19 09:54 | PC.NURSE ---
[employer] contacted at 0940 for flight check to transport to [facility]. Awaiting call back for acceptance.
[2023-07-19 09:58] LABS: ABG Base Excess -19.6 mmol/L (-2.4-2.3); ABG HCO3 9.1 mmhg (22.0-26.0); ABG Oxygen Saturation 96 % (90-100); ABG PCO2 26.5 mmhg (35.0-45.0); ABG PO2 108.6 mmhg (80-100); Oxygen 50 %; PEEP 10; Source ALINE; Tidal Volume 440; Vent Rate 26
[2023-07-19 09:59] LABS: Lactate Arterial 16.2 mmol/L (0.4-2.0)
[2023-07-19 10:00] LABS: ABG PH 7.16 mmol/L (7.35-7.45)
--- NOTE | 2023-07-19 10:10 | PC.NURSE ---
[facility] and [employer] [facility] have both declined flight due to weather. Michael contacted for ambulance transport at this time. [employer] is going to call back in 1 hour to recheck weather status.
--- NOTE | 2023-07-19 10:15 | EXP.PULM.PN ---
Subjective *Date: 07/19/23 *Time: 10:37 Interval history: Stable ventilator settings overnight. Worsening metabolic acidosis and hemodynamic status. Pulmonology Exam Inpatient Vital signs and Labs for Last 24 Hours: Temp Pulse Resp BP Pulse Ox O2 Del Method FiO2 97.5 F L 108 H 25 H 79/32 L 99 Mechanical Ventilation 50 07/19/23 07:42 07/19/23 09:45 07/19/23 09:45 07/19/23 09:45 07/19/23 09:45 07/19/23 09:45 07/19/23 09:45 Laboratory Results - last 24 hr 07/18/23 13:43: Specimen Source Artline, O2 % 100% nrb, ABG pH 7.26 L, ABG pCO2 35.3, ABG pO2 74.4 L, ABG HCO3 15.5 L, ABG Total CO2 16.6 L, ABG O2 Saturation 93, ABG Base Excess -11.6 L 07/18/23 14:24: Specimen Source Artline, O2 % 100%, ABG pH 7.25 L, ABG pCO2 33.5 L, ABG pO2 311.6 H, ABG HCO3 14.3 L, ABG Total CO2 15.4 L, ABG O2 Saturation 100, ABG Base Excess -12.9 L, Vent Rate 20, Tidal Volume 440, PEEP 12 07/18/23 14:25: WBC 20.3 H*, RBC 4.87, Hgb 15.2, Hct 46.0, MCV 94.4 H, MCH 31.1, MCHC 32.9, RDW 15.0, Plt Count 221, MPV 11.5 H, Neut % (Auto) 84.9 H, Lymph % (Auto) 9.0 L, [place] % (Auto) 5.7, Eos % (Auto) 0.2, Baso % (Auto) 0.2, Neut # (Auto) 17.3 H, Lymph # (Auto) 1.8, [place] # (Auto) 1.2 H, Eos # (Auto) 0.1, Baso # (Auto) 0.0, Total Counted 100, Neutrophils % (Manual) 85 H, Lymphocytes % (Manual) 10, Monocytes % (Manual) 5, Platelet Estimate Normal, RBC Morphology Not Reportable, [place] Cells 1+, Sodium 140, Potassium 3.2 L, Chloride 107, Carbon Dioxide 17 L, Anion Gap 19.2 H, BUN 23 H, Creatinine 1.40 H, Estimated Creat Clear 56, Estimated GFR 49 L, Est GFR ( Amer) 59, Glucose 358 H, Calcium 7.4 L, Total Bilirubin 0.5, AST 648 H*, ALT 177 H, Alkaline Phosphatase 76, Total Protein 5.6 L, Albumin 3.1 L, Globulin 2.5, Albumin/Globulin Ratio 1.2, TSH 1.41, Free T4 2.03 07/18/23 14:40: Activated Clotting Time 259 H* 07/18/23 14:53: Urine Color Dark yellow, Urine Appearance Sl cloudy, Urine pH 5.0, Ur Specific [place] >= 1.030, Urine Protein 2+, Urine Glucose (UA) 2+, Urine Ketones Trace, Urine Blood 3+, Urine Nitrate Positive, Urine Bilirubin 2+ A, Urine Urobilinogen 2.0, Ur Leukocyte Esterase Negative, Urine RBC 20-50, Urine WBC Occasional, Ur Squamous Epith Cells Occasional, Urine Bacteria 2+, Hyaline Casts Occasional 07/18/23 15:36: Specimen Source Artline, O2 % 50%, ABG pH 7.25 L, ABG pCO2 32.9 L, ABG pO2 93.9, ABG HCO3 14.0 L, ABG Total CO2 15.0 L, ABG O2 Saturation 97, ABG Base Excess -13.2 L, Vent Rate 26, Tidal Volume 440, PEEP 10 07/18/23 18:31: WBC 24.4 H*, RBC 5.22, Hgb 15.8, Hct 48.4, MCV 92.7, MCH 30.3, MCHC 32.6, RDW 15.2, Plt Count 220, MPV 10.3, Neut % (Auto) 88.8 H, Lymph % (Auto) 5.5 L, [place] % (Auto) 4.8, Eos % (Auto) 0.6, Baso % (Auto) 0.2, Neut # (Auto) 21.7 H, Lymph # (Auto) 1.4, [place] # (Auto) 1.2 H, Eos # (Auto) 0.1, Baso # (Auto) 0.1, Sodium 139, Potassium 3.2 L, Chloride 106, Carbon Dioxide 17 L, Anion Gap 19.2 H, BUN 25 H, Creatinine 1.50 H, Estimated Creat Clear 52, Estimated GFR 45 L, Est GFR ( Amer) 55 L, Glucose 360 H, Calcium 7.5 L, Total Bilirubin 0.4, AST 636 H*, ALT 176 H, Alkaline Phosphatase 77, Total Protein 5.5 L, Albumin 3.1 L, Globulin 2.4, Albumin/Globulin Ratio 1.3 07/18/23 20:03: Specimen Source Right radial, O2 % 50, ABG pH 7.45, ABG pCO2 28.5 L, ABG pO2 159.4 H, ABG HCO3 19.1 L, ABG Total CO2 20.0 L, ABG O2 Saturation 99, ABG Base Excess -4.9 L, Myron Test Non applicable, Vent Rate 26, Tidal Volume 440, PEEP 10 07/19/23 05:25: Specimen Source Artline, O2 % 50%, ABG pH 7.24 L*, ABG pCO2 24.1 L, ABG pO2 135.1 H, ABG HCO3 10.1 L, ABG Total CO2 10.9 L, ABG O2 Saturation 98, ABG Base Excess -17.2 L, Vent Rate 22, Tidal Volume 440, PEEP 10 07/19/23 05:29: Sodium 139, Potassium 5.0 D, Chloride 111 H, Carbon Dioxide 9 L* D, Anion Gap 24.0 H, BUN 27 H, Creatinine 3.00 H D, Estimated Creat Clear 23, Estimated GFR 20 L, Est GFR ( Amer) 25 L D, Glucose 152 H D, Calcium 7.1 L 07/19/23 05:45: ABG Lactate 10.2 H 07/19/23 07:56: Specimen Source Artline, O2 % 50%,
--- NOTE | 2023-07-19 10:18 | PC.NURSE ---
MD Mendiola instructed this RN to give 1L NS bolus and 2 amps bicarb IV stat, report called to RN at [facility] pt going to MICU 1 room 2624
[2023-07-19 10:20] LABS: Basophils # 0.1 K/mm3 (0-0.2); Basophils % 0.2 % (0.1-2.0); Eosinophils # 0.3 K/mm3 (0.0-0.4); Eosinophils % 1.2 % (0.1-12.0); Hematocrit 34.9 % (42.0-52.0); Lymphocytes # 1.4 K/mm3 (0.7-4.5); Lymphocytes % 6.8 % (10-50); Mean Corpuscular HGB Conc 32.1 g/dL (31.8-35.4); Mean Corpuscular Volume 93.7 fl (80-94); Mean Platelet Volume 9.8 fl (7.4-10.4); Monocytes # 1.2 K/mm3 (0.1-1.0); Monocytes % 5.6 % (1.7-9.3); Neutrophils # 17.7 K/mm3 (1.8-7.8); Neutrophils % 86.1 % (37.0-80.0); Platelet Count 160 K/mm3 (142-424); Red Cell Distribution Width 15.2 % (11.5-17.5)
--- NOTE | 2023-07-19 10:24 | PC.NURSE ---
decreased heparin drip 950units/hr per [facility]
--- NOTE | 2023-07-19 10:25 | PC.NURSE ---
starting bicarb drip per order from MD Melgar at bedside, 3G and run at 100Ml/hr, notified rx
[2023-07-19 10:27] LABS: Red Blood Count 3.72 M/mm3 (4.60-6.20); White Blood Count 20.6 K/mm3 (4.8-10.8)
[2023-07-19 10:28] LABS: MANUAL DIFFERENTIAL MANUAL DIFFERENTIAL (MANUAL DIFF)
[2023-07-19 10:32] LABS: Chloride 110 mmol/L (98-107); Potassium 3.5 mmoL/L (3.5-5.1); Sodium 148 mmol/L (136-145)
[2023-07-19 10:34] LABS: Blood Urea Nitrogen 28 mg/dl (9-20); Creatinine Clearance Estimated 20 mL/min (50-200); Estimated Glomerular Filt Rate 18 ml/min (>60); GFR (African American) 21 ML/MIN (>60)
[2023-07-19 10:35] LABS: Albumin Level 2.1 g/dl (3.5-5.0); Albumin/Globulin Ratio 1.1 (1.1-1.8); Alkaline Phosphatase 50 U/L (38-126); Anion Gap 33.5 mEq/L (5-15); Bilirubin,Total 0.7 mg/dl (0.2-1.3); Calcium 6.5 mg/dl (8.4-10.2); Globulin 1.9 g/dL (1.3-3.2); Glucose 139 mg/dl (74-100)
[2023-07-19 10:38] LABS: Eosinophils % 2 % (0-3); Lymphocytes % 6 % (10-50); Monocytes % 4 % (2-9); Neutrophils % 88 % (42-76); Platelet Estimate Normal; Total Cells Counted 100
[2023-07-19 10:39] LABS: Acanthocytes 1+; Anisocytosis 1+; Macrocytosis 2+; Ovalocytes 1+
[2023-07-19 10:47] LABS: Hemoglobin 11.2 g/dL (14.1-18.0)
--- NOTE | 2023-07-19 10:47 | PC.NURSE ---
MD Mendiola ordered milrinone drip at 0.125 do not titrate and if bp drops stop drip, abg being obtained
[2023-07-19 10:50] LABS: PTT Heparin (inpatient only) > 139.0 Seconds (23.6-34.0)
[2023-07-19 10:51] LABS: Carbon Dioxide 8 mmol/L (22.0-30.0)
--- NOTE | 2023-07-19 11:33 | PC.NURSE ---
transporting pt via stetcher to [facility] in [facility] with an emt, chemical dependency professional, RT Roxanna, this RN and a second RN Elisha present; pt has 1L NS bolus going, levophed at 15mcg/min, epi at 30mcg/min, propofol at 10mcg/kg/min, bicarb at 100mL/hr, and heparin at 950units/hr; pt on vent at 100% FIO2, TV 440, peep 10, and rate of 26; pt has tejada with no uop; pt has balloon pump in place; pt has right radial arterial line in place
[2023-07-19 11:35] LABS: Thyroid Stimulating Hormone 1.37 uIU/mL (0.465-4.68)
--- NOTE | 2023-07-19 11:49 | PC.NURSE ---
left parking lot with staff to [facility] in [place], [place]
[2023-07-19 11:53] LABS: NT Pro Brain Natriuretic Pep. 10000 pg/mL (0-450)
--- NOTE | 2023-07-19 12:49 | PC.NURSE ---
1223-en route 1 amp bicarb given 1249-en route 1 amp bicarb given
[2023-07-19 13:09] LABS: Aspartate Amino Transferase 4983 U/L (17-59)
[2023-07-19 13:38] LABS: Alanine Aminotransferase 3417 U/L (12-78)
--- NOTE | 2023-07-19 14:00 | PC.NURSE ---
transported pt via stretcher to room 468 in MICU1 at [place], [place], staff accepted pt
--- NOTE | 2023-07-19 15:10 | EXP.DC.SUM ---
General Admission date:: 07/18/23 Discharge date: 07/19/23 HPI HPI HPI: Patient is a 77-year-old male who presented to hospital as a STEMI alert, patient had cardiac cath With Stenting. Patient Went into cardiogenic shock intubated was put on aortic balloon pump and was admitted to the hospital. At time of my evaluation patient is intubated sedated and is unable to provide any history due to clinical condition Hospital Course Hospital Course Hospital Course: Patient is a 77-year-old male who presented to hospital as a STEMI alert, patient had cardiac cath With Stenting. Patient Went into cardiogenic shock intubated was put on aortic balloon pump and was admitted to the hospital. At time of my evaluation patient is intubated sedated and is unable to provide any history due to clinical condition Assessment Cardiogenic shock, s/p IABP STEMI VDRF Leukocytosis Hypokalemia Anion Gap metabolic acidosis Acute kidney injury Hyperglycemia S/P IABP, PATIENT will be transferred of [facility] per cardiology recommendations, family agreed with the plan Exam Data for Last 24 hours Vital signs and Labs for Last 24 Hours: Temp Pulse Resp BP Pulse Ox O2 Del Method FiO2 97.5 F L 100 H 26 H 81/32 L 99 Mechanical Ventilation 50 07/19/23 10:00 07/19/23 10:30 07/19/23 10:30 07/19/23 10:30 07/19/23 10:30 07/19/23 10:00 07/19/23 10:30 Laboratory Results - last 24 hr 07/18/23 14:25: WBC 20.3 H*, RBC 4.87, Hgb 15.2, Hct 46.0, MCV 94.4 H, MCH 31.1, MCHC 32.9, RDW 15.0, Plt Count 221, MPV 11.5 H, Neut % (Auto) 84.9 H, Lymph % (Auto) 9.0 L, [place] % (Auto) 5.7, Eos % (Auto) 0.2, Baso % (Auto) 0.2, Neut # (Auto) 17.3 H, Lymph # (Auto) 1.8, [place] # (Auto) 1.2 H, Eos # (Auto) 0.1, Baso # (Auto) 0.0, Total Counted 100, Neutrophils % (Manual) 85 H, Lymphocytes % (Manual) 10, Monocytes % (Manual) 5, Platelet Estimate Normal, RBC Morphology Not Reportable, [place] Cells 1+, Sodium 140, Potassium 3.2 L, Chloride 107, Carbon Dioxide 17 L, Anion Gap 19.2 H, BUN 23 H, Creatinine 1.40 H, Estimated Creat Clear 56, Estimated GFR 49 L, Est GFR ( Amer) 59, Glucose 358 H, Calcium 7.4 L, Total Bilirubin 0.5, AST 648 H*, ALT 177 H, Alkaline Phosphatase 76, Total Protein 5.6 L, Albumin 3.1 L, Globulin 2.5, Albumin/Globulin Ratio 1.2, TSH 1.41, Free T4 2.03 07/18/23 14:40: Activated Clotting Time 259 H* 07/18/23 14:53: Urine Color Dark yellow, Urine Appearance Sl cloudy, Urine pH 5.0, Ur Specific [place] >= 1.030, Urine Protein 2+, Urine Glucose (UA) 2+, Urine Ketones Trace, Urine Blood 3+, Urine Nitrate Positive, Urine Bilirubin 2+ A, Urine Urobilinogen 2.0, Ur Leukocyte Esterase Negative, Urine RBC 20-50, Urine WBC Occasional, Ur Squamous Epith Cells Occasional, Urine Bacteria 2+, Hyaline Casts Occasional 07/18/23 15:36: Specimen Source Artline, O2 % 50%, ABG pH 7.25 L, ABG pCO2 32.9 L, ABG pO2 93.9, ABG HCO3 14.0 L, ABG Total CO2 15.0 L, ABG O2 Saturation 97, ABG Base Excess -13.2 L, Vent Rate 26, Tidal Volume 440, PEEP 10 07/18/23 18:31: WBC 24.4 H*, RBC 5.22, Hgb 15.8, Hct 48.4, MCV 92.7, MCH 30.3, MCHC 32.6, RDW 15.2, Plt Count 220, MPV 10.3, Neut % (Auto) 88.8 H, Lymph % (Auto) 5.5 L, [place] % (Auto) 4.8, Eos % (Auto) 0.6, Baso % (Auto) 0.2, Neut # (Auto) 21.7 H, Lymph # (Auto) 1.4, [place] # (Auto) 1.2 H, Eos # (Auto) 0.1, Baso # (Auto) 0.1, Sodium 139, Potassium 3.2 L, Chloride 106, Carbon Dioxide 17 L, Anion Gap 19.2 H, BUN 25 H, Creatinine 1.50 H, Estimated Creat Clear 52, Estimated GFR 45 L, Est GFR ( Amer) 55 L, Glucose 360 H, Calcium 7.5 L, Total Bilirubin 0.4, AST 636 H*, ALT 176 H, Alkaline Phosphatase 77, Total Protein 5.5 L, Albumin 3.1 L, Globulin 2.4, Albumin/Globulin Ratio 1.3 07/18/23 20:03: Specimen Source Right radial, O2 % 50, ABG pH 7.45, ABG pCO2 28.5 L, ABG pO2 159.4 H, ABG HCO3 19.1 L, ABG Total CO2 20.0 L, ABG O2 Saturation 99, ABG Base Excess -4.9 L, Myron Test Non applicable, Vent Rate 26, Tidal Volume 440, PEEP 10 07/19/23 05:25: Specimen
== END 2023-07-19 18:00 | disposition short-term general hospital (02) | DRG 270 ==
LOC: 2ND 15:17
PROVIDERS: Internal Medicine; Physician Assistant; Admitting Provider Internal Medicine; PCP Internal Medicine Adolescent Medicine; Visit Provider Internal Medicine
PROC: 027036Z Dilation of Coronary Artery, One Artery with Three Drug-eluting Intraluminal Devices, Percutaneous Approach (ICD-10-PCS; principal; 2023-07-18 14:00)
DX: R57.0 Cardiogenic shock (principal); I21.09 ST elevation (STEMI) myocardial infarction involving other coronary artery of anterior wall; J96.01 Acute respiratory failure with hypoxia; N17.9 Acute kidney failure, unspecified; E87.20 Acidosis, unspecified; I25.10 Atherosclerotic heart disease of native coronary artery without angina pectoris; F17.290 Nicotine dependence, other tobacco product, uncomplicated; E87.6 Hypokalemia; R73.9 Hyperglycemia, unspecified
CPT/HCPCS: C9606; 33967; 36415; 71045; 80048; 80053; 81001; 82803; 83605; 83880; 84439; 84443; 85007; 85025; 85347; 85730; 87070; 87086; 87205; 92941; 93005; 93460; 94002; 94003; 94640; 94760; 99152; 99153; C1725; C1769; C1874; C1876; C1894; J0330; J0696; J1327; J1644; J2704; Q9967